=== PATIENT | female | born 1995 | race Caucasian/White ===

== ENCOUNTER → 2024-10-07 | Outpatient (CLI) | payer BC, SELFPAY | END | disposition home or self-care (01) | LOC: LABSPEC 11:49 | PROVIDERS: Referring Provider Obstetrics & Gynecology; Visit Provider Obstetrics & Gynecology | DX: O26.899 Other specified pregnancy related conditions, unspecified trimester (principal); R30.0 Dysuria; Z3A.00 Weeks of gestation of pregnancy not specified | CPT/HCPCS: 87086 ==

== ENCOUNTER → 2024-10-23 | Outpatient (CLI) | payer BC, SELFPAY ==
[2024-10-23 16:36] LABS: Absolute Lymphocyte Count 2.21 X10^3/uL (0.83-4.51); Absolute Neutrophil Count 6.5 X10^3/uL (2.0-7.7); Basophil# 0.03 X10^3/uL; Basophil% 0.3 % (0-1); Eosinophil# 0.03 X10^3/uL; Eosinophils% 0.3 % (0-5); Hematocrit 40.4 % (37-47); Hemoglobin 13.6 g/dL (12.0-15.0); Lymphocyte # 2.21 X10^3/ul (0.83-4.51); Lymphocyte % 23.5 % (19-41); Mean Corp Hgb Conc 33.7 g/dL (32-36); Mean Corpuscular Hgb 31.5 pg (27.0-32.0); Mean Corpuscular Volume 93.5 fL (81-99); Mean Platelet Vol. 9.6 fl (6.2-12.0); Monocyte# 0.63 X10^3/uL; Monocyte% 6.7 % (0-10); NRBC Flagged by Analyzer 0 % (0-5); Platelet Count 322 K/mm3 (150-450); RBC Distribution Width CV 12.3 % (11.6-14.6); RBC Distribution Width SD 42.5 fl (35.1-43.9); Red Blood Count 4.32 M/mm3 (4.2-5.4); White Blood Count 9.4 K/mm3 (4.4-11.0)
[2024-10-23 17:25] LABS: HIV Nonreactive (Nonreactive); Hepatitis B Surface Antigen Nonreactive (Nonreactive); Hepatitis C Antibody Nonreactive (Nonreactive); Rubella IgG REAC (Nonreactive); Syphilis Antibodies Nonreactive (Nonreactive)
[2024-10-26 22:06] LABS: Chlamydia By Nucleic Acid AMP Negative (Negative); Gonococcus By Nucleic Acid AMP Negative (Negative)
== END | disposition home or self-care (01) ==
PROVIDERS: Referring Provider Advanced Practice Midwife; Visit Provider Advanced Practice Midwife
DX: Z34.90 Encounter for supervision of normal pregnancy, unspecified, unspecified trimester (principal)
CPT/HCPCS: 36415; 85025; 86703; 86762; 86780; 86803; 86850; 86900; 86901; 87086; 87340; 87491; 87591

== ENCOUNTER 2025-01-22 02:56 | Emergency (ER) | payer BC, SELFPAY ==
[2025-01-22 02:58] VITALS: BP 101/48; PULSE 60; RESP 18; TEMP 36.6; O2SAT 99; BMI 27.5
--- NOTE | 2025-01-22 03:10 | EX.ED.DYSGE1 ---
HPI History of Present Illness Chief Complaint: Abd Pain Narrative Narrative: Patient is a 29-year-old female G3, P2 who is currently 21 weeks who presents to the emergency department chief complaint of abdominal pain. Patient was transferred via EMS from outside facility. States that tonight while laying in bed she noted that she had acute onset of abdominal pain prompting her to go to the local emergency department in [place] and after workup performed there was sent here. Nahomi jauregui there they talked with [facility] and spoke with Dr. Chacon who accept the patient for transfer. Patient states that she had no other complications with her previous pregnancies outside of having a kidney stone but she states that this does feel slightly different. [facility] Medical History Kidney stones Home Medications ?Medication ?Instructions ?Recorded ?Last Taken ?Type vits no.126-ferrous fum 1 tab PO DAILY 10/07/24 Unknown History 28 mg iron-folic acid 800 mcg tablet (Classic ) ondansetron 4 mg disintegrating 4 mg PO Q6H PRN nausea and 10/23/24 Unknown Rx tablet vomiting #30 tabs Allergy/AdvReac Type Severity Reaction Status Date / Time No Known Allergies Allergy Verified 01/22/25 02:57 Family History Mother Thyroid disorder Grandfather Lung cancer Father Hypertension Grandmother Acute Crohn's disease Surgical History S/P ureteral stent placement Social History adopted: No household members: spouse and children number of children: 2 current occupational status: employed current occupation: [employer] (works from home) current occupational exposures/hazards: No pets and animals: Yes pets and animals: dog(s) history of recent travel: No sexually active: Yes Smoking Status: Former smoker how long ago did patient quit smoking: In high school second hand exposure: No quit status: quit date established alcohol intake: current alcohol intake frequency: holidays/special occasions only substance use type: does not use well-balanced diet: daily or most days caffeine: Yes Type: coffee Number of servings: 1 eating out: 1-3 times/week during the past year weight has: remained stable what type of physical activity do you participate in: walking frequency: daily duration: 30-45 minutes/day susie/church: None seatbelt use: always do you feel safe at home: Yes additional social history: : Frank CONNOR ROS ED ROS Narrative Constitutional: Denies any fevers or chills Cardiovascular: Denies chest pain Respiratory: Denies shortness of breath Abdomen: Complains of abdominal pain as noted above as well as nausea denies diarrhea : Denies any painful urination, hematuria, polyuria, vaginal spotting Neurological: Denies any numbness, weakness, tingling Musculoskeletal: Denies back pain Skin: Denies any rashes or lesions EXAM Physical Exam Narrative Exam Narrative: General: Patient lying in bed rest comfortably did not appear to be in acute distress Head: Atraumatic, normocephalic Eyes: PERRL bilaterally, EOMI bilaterally, no conjunctival injection noted Neck: Soft, supple, trachea midline Cardiovascular: Regular rate and rhythm Respiratory: Clear to auscultation bilaterally Abdomen: Soft, gravid abdomen, tenderness to palpation of the right lower quadrant no rebound or guarding on exam Musculoskeletal: No CVA tenderness on exam Extremities: +5/5 strength noted in the bilateral upper and lower extremities Neurological: Patient following commands knew that she was at [facility] the year is 2024 Skin: Warm, dry, intact no rashes or lesions noted Const Vital Signs: 01/22/25 02:58 Temperature 97.9 F Temperature Source Oral Pulse Rate 60 Respiratory Rate 18 Blood Pressure 101/48 L Blood Pressure Mean 65 Pulse Ox 99 Oxygen Delivery Method Room Air MDM MDM MDM Narrative Medical decision making narrative: Patient is a 29-year-old female who presented to the emergency department with a chief complaint of abdominal pain. On the differential diagnosis includes but not limited to appendicitis, urolithiasis, UTI, pyelonephritis. Once the workup is obtained and reviewed she will be reevaluated. Patient's outside paperwork was reviewed which included a CMP which showed sodium was normal at 137, potassium normal 3.6, creatinine was 0.58. Patient's AST and ALT were 10 and 9 respectively calcium was normal at 9.3. Patient lipase normal at 25. Patient CBC was reviewed which showed a mild leukocytosis of 11,000, hemoglobin 11.8, platelet count of 262. heart tones at outside facility were 150. Patient urinalysis obtained here was reviewed which showed 250 occult blood 25 leukocyte esterase negative nitrites 0-5 white cells and rare bacteria noted this was sent for culture. I called and spoke with on-call [employer] [facility] for [place] Dr. Chacon and we discussed and she is recommending obtaining a CT scan. I went back in and discussed with the patient again about the risks and benefits of this imaging and she states that her and her want talk about this. I did discuss that there are risks if she does have appendicitis that infections can induce early labor and she is 21 weeks currently which is nonviable. Will reevaluate her to see the results of their discussion. Went back in and discussed again with the patient and her significant other at bedside and they ultimately want to hold off on the CT scan at this point in time. They will come back immediately if anything worsens or changes. Once again I reiterated that there is a chance that she does have appendicitis which could lead to this worsening which could lead to early labor in the setting of 21 weeks which is not viable. This also could lead to her self becoming severely ill ultimately to her she verbalized understanding of this as well as her significant other bedside. They are advised to return with worsening symptoms or concerns they are also advised to follow-up on urine culture and follow-up with her [employer] [facility] [facility] team. All question concerns answered she was discharged home in stable condition. Lab Data Labs: Laboratory Results - last 24 hr 01/22/25 03:15 Urine Color Yellow Urine Clarity Clear Urine pH 6.5 Ur Specific [place] 1.010 Urine Protein 15 H Urine Glucose (UA) Normal Urine Ketones 15 H Urine Occult Blood 250 H Urine Nitrite Negative Urine Bilirubin Negative Urine Urobilinogen Normal Ur Leukocyte Esterase 25 H Urine RBC 0-5 SEEN Urine WBC 0-5 SEEN Ur Squamous Epith Cells 0-5 SEEN Ur Transition Epith Cell 0-5 SEEN Urine Bacteria RARE Urine Mucus 1+ Discharge Plan Triage Chief Complaint: Abd Pain ED Provider: Shaji Tao Dx/Rx/DC Orders Clinical Impression: , Abdominal pain Prescriptions: No Action Classic 28 mg iron- 800 mcg tablet 1 tab PO DAILY ondansetron 4 mg tablet,disintegrating 4 mg PO Q6H PRN (Reason: nausea and vomiting) Qty: 30 4RF Primary Care Provider: Faiza Greenberg Referrals: Faiza Greenberg MD [Primary Care Provider] - Activity Restrictions/Additional Instructions: If anything worsens or any other concerns return to the emergency department immediately. Follow-up your [employer] [facility] [facility] in outpatient setting otherwise. Follow-up on urine culture with them as well. Print Language: Maltese Disposition Disposition: Home, Self Care
[2025-01-22 03:20] LABS: Color, Urine Yellow (Yellow); Glucose, Dipstick Normal (Normal); Urine Bilirubin Dipstick Negative (Negative)
[2025-01-22 03:21] LABS: Ketone-Dipstick 15 mg/dl (Negative); Leukocyte Esterase-Dipstick 25 /ul (Negative); Nitrite-Dipstick Negative (Negative); Occult Blood-Urine 250 /ul (Negative); Protein-Dipstick 15 mg/dl (Negative); Specific Gravity, Urine 1.010 (1.002-1.030)
--- OUTSIDE RECORDS SUMMARY | 2025-01-22 03:35 | XMS RPT_ITS | CCD ---
Author Organization [facility] CliniSyoh Care Team Providers Care Operating Room Technologist Name Role Phone Cadiz, Jie S Unavailable Unavailable Unavailable Cadiz DO, Jie S Primary Care Provider [phone] Cadiz DO, Jie S Unavailable [phone] Cadiz DO, Jie S Primary Care Provider Cadiz DO, Jie S Unavailable [phone] MIMI DE ANDA Attending Unavailable ROYAL, JIE S Referring Unavailable ROYAL, JIE S Primary Care Unavailable ROYAL, JIE S Attending Unavailable ROYAL, JIE S Referring Unavailable ROYAL, JIE S Primary Care Unavailable Dr. Liz Ca DO Attending Provider Dr. Liz Ca DO Referring Provider Heather Lee RN Attending Provider UnavailMissy Fleming CNM Attending Provider Missy Fuentes CNM Referring Provider Haley ALMANZA, Dr. Ziegler Attending Provider Abimael MAGDALENOCRadha Attending Provider [phone] KATERINA PRIMARY CAREMD Primary Care Unavailable DARRELL PA Attending Unavailable Karlie De Leon Attending Unavailable Heather Lee Attending Unavailable Missy Fuentes Attending Unavailable Liz Ca Attending UnavailRadha Perez NP Attending Unavailable Liz Ca Referring UnavailLiz Mittal Attending UnavailMissy Fleming Referring Unavailable Missy Fuentes Attending Unavailable Radha Varghese NP Attending Unavailable Cadiz DO, Jie S Primary Care Provider Medications Current Medications Medication Drug Class(es) Dates Sig (Normalized) Sig (Original) Vit No.913-Vqtk-Coqnz (Classic ) 28 mg iron- 800 mcg tablet (4 sources) Start: 10-07-2024 Vit No.354-Wirz-Plach (Classic ) 28 mg iron- 800 mcg tablet Active {tbl} PO October 07, 2024 12:00am Completed/Discontinued Medications Medication Drug Class(es) Dates Sig (Normalized) Sig (Original) 1 ml fentaNYL 0.05 mg/ml injection (1 source) Opioid Agonist Start: 01-22-2025 End: 01-22-2025 50 mcg, intravenous, Once, On Sat01/22/25 at 0015, For 1 dose 1 ml morphine sulfate 2 mg/ml prefilled syringe (1 source) Opioid Agonist Start: 01-21-2025 End: 01-21-2025 2 mg, intravenous, Once, On Sat01/21/25 at 2325, For 1 dose nitrofurantoin, macrocrystals 25 mg / nitrofurantoin, monohydrate 75 mg oral capsule (4 sources) Nitrofuran Antibacterial Start: 10-07-2024 End: 10-14-2024 take 1 capsule by mouth twice daily at mealtime Nitrofurantoin Monohyd/M-Cryst (Macrobid) 100 mg capsule Discontinued 100 mg PO TWICE A DAY 14 7 0 October 07, 2024 12:00am October 13, 2024 12:00am October 14, 2024 12:08am must administer with a meal/food No Reported Medications (2 sources) No Reported Medications Quantity: 0 Refills: 0 Ordered: 29-Mar-2022 DO Active 2 ml ondansetron 2 mg/ml injection (6 sources) Serotonin-3 Receptor Antagonist Start: 01-21-2025 End: 01-22-2025 4 mg, intravenous, Once, On Sat01/22/25 at 0020, For 1 dose, When administering via IV Push, administer over 3-5 minutes. Start: 10-23-2024 take 1 tablet by hugo th every six hours as needed for nausea and vomiting Ondansetron 4 mg tablet,disintegrating Active 4 mg PO EVERY 6 HOURS as needed for nausea and vomiting 30 4 October 23, 2024 12:00am Nausea and vomiting during Vomiting of , unspecified promethazine (Phenergan) 12. 5 mg in sodium chloride 0.9% 50 mL IV (2 sources) Start: 01-22-2025 End: 01-22-2025 12.5 mg, intravenous, Administer over 15 Minutes, Once, On Sat01/22/25 at 0130, For 1 dose Start: 01-22-2025 End: 01-22-2025 12.5 mg, intravenous, Admini ster over 15 Minutes, Once, On Sat01/22/25 at 0055, For 1 dose 1000 ml sodium chloride 9 mg /ml injection (4 sources) Start: 01-22-2025 End: 01-22-2025 Starting on Sat01/22/25 at 00 59, For 1 dose, Created by cabinet override Start: 01-21-2025 End: 01-23-2025 500 mL, intravenous, at 500 mL/hr, Administer over 1 Hours, Once, On Sat01/22/25 at 0130, For 1 dose Problems Active Problems Problem Classification Problem Date Documented Da te Episodic/Chronic Abdominal pain (1 source) Right lower quadrant pain; Translations: [Right lower quadrant pain] 01-22-2025 Episodic Calculus of urinary tract (2 sources) Kidney stone; Translations: [Calculus of kidney] Episodic Hemorrhage during ; abruptio placenta; placenta previa (2 sources) Low lying placenta; Translations: [Low lying placenta NOS or without hemorrhage, unspecified trimester] 01-13-2025 Episodic Comment on above: pelvic rest, 28 week follow up scan:03/08 MFM: Other and unspecified benign neoplasm (2 sources) Melanocytic nevus; Translations: [Benign neoplasm of skin, site unspecified] Episodic Other complications of (1 source) Vomiting of , unspecified; Translations: [Vomiting of , unspecified] Onset: 10-23-2024 Episodic Other complications of (1 source) Other specified related conditions, unspecified trimester; Translations: [Other specified related conditions, unspecified trimester] Onset: 11-06-2024 Episodic Other nervous system disorders (2 sources) Choroid plexus cyst; 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 Declines genetic/car rier testing, AFP, Residual codes; unclassified (1 source) 12 weeks gestation of ; Translations: [12 weeks gestation of ] Onset: 11-19-2024 Episodic Residual codes; unclassified (1 source) 8 weeks gestation of ; Translations: [8 weeks gestation of ] Onset: 10-23-2024 Episodic Past or Other Problems Problem Classification Problem Date Documented Da te Episodic/Chronic Genitourinary symptoms and ill-defined conditions (1 source) Dysuria; Translations: [Dysuria] Onset: 10-07-2024 Episodic Other and unspecified benign neoplasm (5 sources) Multiple atypical melanocytic nevi; Translations: [Melanocytic nevi, unspecified] Onset: 10-03-2023 10-03-2023 Episodic Other screening for suspected conditions (not mental disorders or infectious disease) (6 sources) Patient encounter status; Translations: [Encounter for screening for lipoid disorders] Onset: 10-03-2023 10-03-2023 Episodic Unclassified (4 sources) Onset: 10-03-2023 Resolved: 10-08-2024 10-03-2023 Results Test Name Value Interpretation Reference Range Facility CBC W Auto Differential pane l (Bld)on 01-21-2025 Basophils (Bld) [#/Vol] 0.03 10*3/uL [facility] Basophils/100 WBC (Bld) 0.3 % 0.0 - 2.0 % [facility] Eosinophils (Bld) [#/Vol] 0.06 10*3/uL [facility] Eosinophils/100 WBC (Bld) 0.5 % 0.0 - 6.0 % [facility] Erythrocyte distribution width (RBC) [Ratio] 12.3 % 11.5 - 14.5 % [facility] Hematocrit (Bld) [Volume fraction] 33.4 % Low 36.0 - 46.0 % [facility] Hemoglobin (Bld) [Mass/Vol] 11.8 g/dL Low 12.0 - 16.0 g/dL [facility] Immature granulocytes (Bld) [#/Vol] 0.07 10*3/uL [facility] Immature granulocytes/100 WBC (Bld) 0.6 % 0.0 - 0.9 % [facility] Comment on above: Immature Granulocyte Count (IG) includes promyelocytes, myelocytes and metamyelocytes but does not include bands. Percent differential counts (%) should be interpreted in the context of the absolute cell counts (cells/UL). Interpretation and review of laboratory results Abnormal [facility] Lymphocytes (Bld) [#/Vol] 3.56 10*3/uL [facility] Lymphocytes/100 WBC (Bld) 30.3 % 13.0 - 44.0 % [facility] MCH (RBC) [Entitic mass] 32.3 pg 26.0 - 34.0 pg [facility] MCHC (RBC) [Mass/Vol] 35.3 g/dL 32.0 - 36.0 g/dL [facility] MCV (RBC) [Entitic vol] 92 fL 80 - 100 fL [facility] Monocytes (Bld) [#/Vol] 0.79 10*3/uL [facility] Monocytes/100 WBC (Bld) 6.7 % 2.0 - 10.0 % [facility] Neutrophils (Bld) [#/Vol] 7.23 10*3/uL [facility] Comment on above: Percent differential counts (%) should be interpreted in the context of the absolute cell counts (cells/uL). Neutrophils/100 WBC (Bld) 61.6 % 40.0 - 80.0 % [facility] Nucleated RBC/100 WBC (Bld) [Ratio] 0.0 % [facility] Platelets (Bld) [#/Vol] 262 10*3/uL [facility] RBC (Bld) [#/Vol] 3.65 10*6/uL Low [facility] WBC (Bld) [#/Vol] 11.7 10*3/uL High [facility]ive [facility] Comprehensive metabolic 2000 panelon 01-21-2025 Albumin BCP dye [Mass/Vol] 4.0 g/dL 3.4 - 5.0 g/dL [facility] ALP [Catalytic activity/Vol] 48 U/L 33 - 110 U/L [facility] ALT With P-5'-P [Catalytic activity/Vol] 9 U/L 7 - 45 U/L [facility] Comment on above: Patients treated wit h Sulfasalazine may generate falsely decreased results for ALT. Anion gap [Moles/Vol] 14 mmol/L 10 - 20 mmol/L [facility] AST With P-5'-P [Catalytic activity/Vol] 10 U/L 9 - 39 U/L [facility] Bilirubin [Mass/Vol] 0.2 mg/dL 0.0 - 1 .2 mg/dL [facility] Calcium [Mass/Vol] 9.3 mg/dL 8.6 - 10. 3 mg/dL [facility] Chloride [Moles/Vol] 106 mmol/L 98 - 10 7 mmol/L [facility] CO2 [Moles/Vol] 21 mmol/L 21 - 32 mmol/L [facility] Creatinine [Mass/Vol] 0.58 mg/dL 0.50 - 1.05 mg/dL [facility] eGFR - PINF [facility] Comment on above: Calculations of mariia mated GFR are performed using the 2020 CKD-EPI Study Refit equation without the race variable for the IDMS-Traceable creatinine methods. https://jasn.asnjournals.org/content//ASN.696 7398395 Glucose [Mass/Vol] 93 mg/dL 74 - 99 mg/dL Uni [facility] Interpretation and review of laboratory results Normal [facility] Potassium [Moles/Vol] 3.6 mmol/L 3.5 - 5.3 mmol/L [facility] Protein [Mass/Vol] 6.8 g/dL 6.4 - 8.2 g/dL Un [facility] Sodium [Moles/Vol] 137 mmol/L 136 - 145 mmol/L [facility] Urea nitrogen [Mass/Vol] 14 mg/dL 6 - 23 mg/d L [facility] Lactateon 01-21-2025 Lactate [Moles/Vol] 1.4 mmol/L 0.4 - 2. 0 mmol/L [facility] Lactate [Moles/Vol]on 2024 Interpretation and review of laboratory results Normal [facility] Venipuncture immediately after or during the administration of Metamizole may lead to falsely low results. Testing should be performed immediately prior to Metamizole dosing. [facility] Lipaseon 01-21-2025 Lipase [Catalytic activity/Vol] 25 U/L 9 - 82 U/L [facility] Lipase [Catalytic activity/V ol]on 01-21-2025 Interpretation and review of laboratory results Normal [facility] Venipuncture immediately after or during the administration of Metamizole may lead to falsely low results. Testing should be performed immediately prior to Metamizole dosing. [facility] Delivery Route Driver Office Visit Reporton 01-13-2025 Delivery Route Driver Office Visit Report [facility] [address], [address] [place] [address] OFFICE VISIT Date of Service: 01/13/25 MR#: [id number] Acct: [id number] Name: PRIYANKA CHAVIRA Rep #: [id number] : 1995 Provider: DARYN kim Age/Sex: 29/F Location: [facility] [place] Status: Signed Intake Vital Signs 11/19/24 15:17 12/16/24 08:48 01/13/25 09:48 01/13/25 09:57 Height 5 ft 2 in 5 ft 2 in 5 ft 2 in 5 ft 2 in Weight: 145 lb 2 oz BMI 26.5 BP 108/66 Intake Visit Reasons: 20 WK OB Chief Complaint: 20 Week OB Sandwich And Drink Cart Operator Required: No Is patient in pain?: No Allergies No Known Allergies Allergy (Verified 01/13/25 09:47) Medications ???Medication ???Instructions ???Recorded ???Confirmed ???Type vits no.126-ferrous fum tab PO 10/07/24 01/13/25 History 28 mg iron-folic acid 800 mcg tablet (Classic ) ondansetron 4 mg disintegrating 4 mg PO Q6H PRN nausea and 5 01/13/25 Rx tablet vomiting #30 tabs Last Menstrual Period: 08/23/24 Zika: Zika virus screening: Negative : No PFSH PFSH Medical History Kidney stones Surgical History S/P ureteral stent placement Family History Mother Thyroid disorder Grandfather Lung cancer Father Hypertension Grandmother Acute Crohn's disease Social History adopted: No household members: spouse and children number of children: 2 current occupational status: employed current occupation: [employer] (works from home) current occupational exposures/hazards: No pets and animals: Yes pets and animals: dog(s) history of recent travel: No sexually active: Yes Smoking Status: Former smoker how long ago did patient quit smoking: In high school second hand exposure: No quit status: quit date established alcohol intake: current alcohol intake frequency: holidays/special occasions only substance use type: does not use well-balanced diet: daily or most days caffeine: Yes Type: coffee Number of servings: 1 eating out: 1-3 times/week during the past year weight has: remained stable what type of physical activity do you participate in: walking frequency: daily duration: 30-45 minutes/day susie/rastafarian: None seatbelt use: always do you feel safe at home: Yes additional social history: : Frank Rios History 3 Elective abortions Hx Para 2 Spontaneous abortions 0 Hx # Term Pregnancies 2 Ectopic pregnancies Hx # Pregnancies Multiple births # of living children 2 Past Pregnancies Del. Date Name GA/Weeks Outcome Route Bth Weight Gen Labor Lgth Anesthesia Del Locatn Provider FOB 01/28/14 Emmy 40 live - full term 6lbs 6oz Female epidural [facility] [place] 09/25/21 Ninoska 39 live - full term 7lbs 1.5oz Female epidural [facility] Delivery Date: 01/28/14 Last Updated by: Heather Lee RN No complications Delivery Date: 09/25/21 Last Updated by: Heather Lee RN Very sick, Kidney stone - hospitalized stent placed HPI 20 WK OB Details: PRIYANKA CHAVIRA is a 29 year old who presents for routine OB visit. OB Visit LAVELLE Calculator Estimated Delivery Date Method Current WG Current Estimate 05/30/25 LMP (Certain) 20w 3d Other Estimates 05/29/25 Ultrasound #1 20w 4d Expected Delivery Route/Plan Labor Preferences- CB/BF classes: [] labor support person: [] labor intervention preferences: [] pain management options preferred: [] cut cord/dad catch: [] : [] PP control planned: [] discussed possible routes of delivery and associated risks: [] special requests: [] Specific Issue/Plans Covid status: [] Flu vaccine: [] Tdap vaccine: [] Rhogam: [] LARC form signed: [] Problem list reviewed and updated with the most current plan of care details and appropriate orders placed. Relevant counseling for the gestational age provided. Continue routine care and follow up unless otherwise noted in visit notes/problem list details Initial Weight: 142 lb Date -???-???-???-???-?? ?-???-???-???-???-? ??-???-???- EGA Weight BP Urine Prot -???-???-???-???-?? ?-???-???-???-???-? ??-???-???- Glucose FHR FuHt Pres Dilation -???-???-???-???-?? ?-???-???-???-???-? ??-???-???- Effaced St Visit Note 10/23/24 -???-???-???-???-?? ?-???-???-???-???-? ??-???-???- 8w 5d 142 lb 8 oz (+8 oz) 121/66 -???-???-???-???-?? ?-???-???-???-???-? ??-???-???- 170 -???-???-???-???-?? ?-???-???-???-???-? ??-???-???- KW- CRL cons with (more content not included)... Normal [facility] Delivery Route Driver Office Visit Reporton 12-16-2024 Delivery Route Driver Office Visit Report [facility] [address], [address] [place] [address] OFFICE VISIT Date of Service: 12/16/24 MR#: [id number] Acct: [id number] Name: PRIYANKA CHAVIRA Rep #: [id number] : 1995 Provider: DARYN kim Age/Sex: 29/F Location: [facility] [place] Status: Signed Intake Vital Signs 10/23/24 13:06 11/19/24 15:17 12/16/24 08:37 12/16/24 08:48 Height 5 ft 2 in 5 ft 2 in 5 ft 2 in 5 ft 2 in Weight: 142 lb 8 oz 138 lb 8 oz 142 lb BMI 26.0 25.3 25.9 BP 121/66 H 106/67 104/60 Intake Visit Reasons: 16 wk ob Chief Complaint: 16 Week OB Sandwich And Drink Cart Operator Required: No Is patient in pain?: No Allergies No Known Allergies Allergy (Verified 12/16/24 08:37) Medications ???Medication ???Instructions ???Recorded ???Confirmed ???Type vits no.126-ferrous fum tab PO 10/07/24 12/16/24 History 28 mg iron-folic acid 800 mcg tablet (Classic ) ondansetron 4 mg disintegrating 4 mg PO Q6H PRN nausea and 5 12/16/24 Rx tablet vomiting #30 tabs Last Menstrual Period: 08/23/24 Zika: Zika virus screening: Negative : No PFSH PFSH Medical History Kidney stones Surgical History S/P ureteral stent placement Family History Mother Thyroid disorder Grandfather Lung cancer Father Hypertension Grandmother Acute Crohn's disease Social History adopted: No household members: spouse and children number of children: 2 current occupational status: employed current occupation: [employer] (works from home) current occupational exposures/hazards: No pets and animals: Yes pets and animals: dog(s) history of recent travel: No sexually active: Yes Smoking Status: Former smoker how long ago did patient quit smoking: In high school second hand exposure: No quit status: quit date established alcohol intake: current alcohol intake frequency: holidays/special occasions only substance use type: does not use well-balanced diet: daily or most days caffeine: Yes Type: coffee Number of servings: 1 eating out: 1-3 times/week during the past year weight has: remained stable what type of physical activity do you participate in: walking frequency: daily duration: 30-45 minutes/day susie/rastafarian: None seatbelt use: always do you feel safe at home: Yes additional social history: : Frank - [employer] History 3 Elective abortions Hx Para 2 Spontaneous abortions 0 Hx # Term Pregnancies 2 Ectopic pregnancies Hx # Pregnancies Multiple births # of living children 2 Past Pregnancies Del. Date Name GA/Weeks Outcome Route Bth Weight Gen Labor Lgth Anesthesia Del Locatn Provider FOB 01/28/14 Emmy 40 live - full term 6lbs 6oz Female epidural [facility] 09/25/21 Ninoska 39 live - full term 7lbs 1.5oz Female epidural [facility] Delivery Date: 01/28/14 Last Updated by: Heather Lee RN No complications Delivery Date: 09/25/21 Last Updated by: Heather Lee RN Very sick, Kidney stone - hospitalized stent placed HPI 16 wk ob Details: PRIYANKA CHAVIRA is a 29 year old who presents for routine OB visit. OB Visit LAVELLE Calculator Estimated Delivery Date Method Current WG Current Estimate 05/30/25 LMP (Certain) 16w 3d Other Estimates 05/29/25 Ultrasound #1 16w 4d Expected Delivery Route/Plan Labor Preferences- CB/BF classes: [] labor support person: [] labor intervention preferences: [] pain management options preferred: [] cut cord/dad catch: [] : [] PP control planned: [] discussed possible routes of delivery and associated risks: [] special requests: [] Specific Issue/Plans Covid status: [] Flu vaccine: [] Tdap vaccine: [] Rhogam: [] LARC form signed: [] Problem list reviewed and updated with the most current plan of care details and appropriate orders placed. Relevant counseling for the gestational age provided. Continue routine care and follow up unless otherwise noted in visit notes/problem list details Initial Weight: 142 lb Date -???-???-???-???-?? ?-???-???-???-???-? ??-???-???- EGA Weight BP Urine Prot -???-???-???-???-?? ?-???-???-???-???-? ??-???-???- Glucose FHR FuHt Pres Dilation -???-???-???-???-?? ?-???-???-???-???-? ??-???-???- Effaced St Visit Note 10/23/24 -???-???-???-???-?? ?-???-???-???-???-? ??-???-???- 8w 5d 142 lb 8 oz (+8 oz) 121/66 -???-???-???-???-?? ?-???-???-???-???-? ??-???-???- 170 -???-???-???-???-?? ?-???-?? (more content not included)... Normal [facility] Laboratory - Chemistry and C hemistry - challengeOrdered By: Karlie De Leon on 11-19-2024 Glucose Ql (U) Negative [facility] - UrinalysisOrder ed By: Karlie De Leon on 11-19-2024 Protein Ql (U) Negative [facility] Delivery Route Driver Office Visit Reporton 11-19-2024 Delivery Route Driver Office Visit Report [facility] [address], [address] [place] [address] OFFICE VISIT Date of Service: 11/19/24 MR#: [id number] Acct: [id number] Name: PRIYANKA CHAVIRA Rep #: [id number] : 1995 Provider: Dr. Karlie martin MD Age/Sex: 29/F Location: [facility] [place] Status: Signed Intake Vital Signs 10/23/24 13:06 11/19/24 15:17 Height 5 ft 2 in 5 ft 2 in Weight: 138 lb 8 oz BMI 25.3 BP 106/67 Intake Visit Reasons: 12wk OB Chief Complaint: 12 Week OB Sandwich And Drink Cart Operator Required: No Is patient in pain?: No Allergies No Known Allergies Allergy (Verified 11/19/24 15:18) Medications ???Medication ???Instructions ???Recorded ???Confirmed ???Type vits no.126-ferrous fum tab PO 10/07/24 11/19/24 History 28 mg iron-folic acid 800 mcg tablet (Classic ) ondansetron 4 mg disintegrating 4 mg PO Q6H PRN nausea and 5 11/19/24 Rx tablet vomiting #30 tabs Last Menstrual Period: 08/23/24 Zika: Zika virus screening: Negative : No PFSH PFSH Medical History Kidney stones Surgical History S/P ureteral stent placement Family History Mother Thyroid disorder Grandfather Lung cancer Father Hypertension Grandmother Acute Crohn's disease Social History adopted: No household members: spouse and children number of children: 2 current occupational status: employed current occupation: [employer] (works from home) current occupational exposures/hazards: No pets and animals: Yes pets and animals: dog(s) history of recent travel: No sexually active: Yes Smoking Status: Former smoker how long ago did patient quit smoking: In high school second hand exposure: No quit status: quit date established alcohol intake: current alcohol intake frequency: holidays/special occasions only substance use type: does not use well-balanced diet: daily or most days caffeine: Yes Type: coffee Number of servings: 1 eating out: 1-3 times/week during the past year weight has: remained stable what type of physical activity do you participate in: walking frequency: daily duration: 30-45 minutes/day susie/rastafarian: None seatbelt use: always do you feel safe at home: Yes additional social history: : [employer] History 3 Elective abortions Hx Para 2 Spontaneous abortions 0 Hx # Term Pregnancies 2 Ectopic pregnancies Hx # Pregnancies Multiple births # of living children 2 Past Pregnancies Del. Date Name GA/Weeks Outcome Route Bth Weight Gen Labor Lgth Anesthesia Del Locatn Provider FOB 01/28/14 Emmy 40 live - full term 6lbs 6oz Female epidural [facility] [place] 09/25/21 Ninoska 39 live - full term 7lbs 1.5oz Female epidural [facility] Delivery Date: 01/28/14 Last Updated by: Heather Lee RN No complications Delivery Date: 09/25/21 Last Updated by: Heather Lee RN Very sick, Kidney stone - hospitalized stent placed HPI 12wk OB Details: PRIYANKA CHAVIRA is a 29 year old who presents for routine OB visit. OB Visit LAVELLE Calculator Estimated Delivery Date Method Current WG Current Estimate 05/30/25 LMP (Certain) 12w 4d Other Estimates 05/29/25 Ultrasound #1 12w 5d Expected Delivery Route/Plan Labor Preferences- CB/BF classes: [] labor support person: [] labor intervention preferences: [] pain management options preferred: [] cut cord/dad catch: [] : [] PP control planned: [] discussed possible routes of delivery and associated risks: [] special requests: [] Specific Issue/Plans Covid status: [] Flu vaccine: [] Tdap vaccine: [] Rhogam: [] LARC form signed: [] Problem list reviewed and updated with the most current plan of care details and appropriate orders placed. Relevant counseling for the gestational age provided. Continue routine care and follow up unless otherwise noted in visit notes/problem list details Initial Weight: 142 lb Date -???-???-???-???-?? ?-???-???-???-???-? ??-???-???- EGA Weight BP Urine Prot -???-???-???-???-?? ?-???-???-???-???-? ??-???-???- Glucose FHR FuHt Pres Dilation -???-???-???-???-?? ?-???-???-???-???-? ??-???-???- Effaced St Visit Note 10/23/24 -???-???-???-???-?? ?-???-???-???-???-? ??-???-???- 8w 5d 142 lb 8 oz (+8 oz) 121/66 -???-???-???-???-?? ?-???-???-???-???-? ??-???-???- 170 -???-???-???-???-?? ?-???-???-???-???-? ??-???-???- KW- CRL cons with dates. denies NIPT. 11/19/24 -???-???-???-? (more content not included)... Normal [facility] Chlamydia/GC SERAFIN aptimaon CHLAMY,NUC ACID Negative Normal Negative [facility] Comment on above: Performed By: #### M 100.2200, L7000.1800 #### [facility] [address] [place], [address] GC BY NUC ACID Negative Normal Negative [facility] Comment on above: Result Comment: Perf ormed at: =G - [facility] [address] [place] [id number] [employer]board Factory Worker: Heather Schreiber MD, Phone: [phone] Performed By: #### M 100.2200, L7000.1800 #### [facility] [address] [place], [address] Urine Cultureon 10-24-2024 URC Culture exhibits no growth. Normal [facility] Comment on above: Performed By: #### M 100.2200, L7000.1800 #### [facility] [address] [place], [address] Absolute lymphocyte countOrd ered By: Missy Fuentes on 10-23-2024 Lymphocytes Auto (Unsp spec) [#/Vol] 2.21 10*3/uL 0.83-4.51 [facility] Absolute neutrophil countOrd ered By: Missy Fuentes on 10-23-2024 Neutrophils (Bld) [#/Vol] 6.5 10*3/uL 2.0-7.7 [facility] Automated lymphocyte count a s percentage of total leukocytesOrdered By: Missy Fuentes on 10-23-2024 Lymphocytes/100 WBC Auto (Unsp spec) 23.5 % 19-41 [facility] Basophil percentageOrdered B y: Missy Fuentes on 10-23-2024 Basophils/100 WBC (Bld) 0.3 % 0-1 [facility] CBC W/Diff, Automatedon Absolute Lymph 2.21 X10 3/uL Normal 0.83-4.51 [facility] Comment on above: Performed By: #### L 3890.6301, L100.0100, BTS, L509.4006, L509.8002, L3890.6006, L3890.6102 #### [facility] [address] [place], [address] Absolute Neut 6.5 X10 3/uL Normal 2.0-7.7 [facility] Comment on above: Performed By: #### L 3890.6301, L100.0100, BTS, L509.4006, L509.8002, L3890.6006, L3890.6102 #### [facility] [address] [place], [address] Basophils/100 WBC (Bld) 0.3 % Normal 0-1 [facility] Comment on above: Performed By: #### L 3890.6301, L100.0100, BTS, L509.4006, L509.8002, L3890.6006, L3890.6102 #### [facility] [address] [place], [address] Eosinophils/100 WBC (Bld) 0.3 % Normal 0-5 [facility] Comment on above: Performed By: #### L 3890.6301, L100.0100, BTS, L509.4006, L509.8002, L3890.6006, L3890.6102 #### [facility] [address] [place], [address] Erythrocyte distribution width (RBC) [Ratio] 12.3 % Normal 11.6-14.6 [facility] Comment on above: Performed By: #### L 3890.6301, L100.0100, BTS, L509.4006, L509.8002, L3890.6006, L3890.6102 #### [facility] [address] [place], [address] Hematocrit (Bld) [Volume fraction] 40.4 % Normal 37-47 [facility] Comment on above: Performed By: #### L 3890.6301, L100.0100, BTS, L509.4006, L509.8002, L3890.6006, L3890.6102 #### [facility] [address] [place], [address] Hemoglobin (Bld) [Mass/Vol] 13.6 g/dL Normal 12.0-15.0 [facility] Comment on above: Performed By: #### L 3890.6301, L100.0100, BTS, L509.4006, L509.8002, L3890.6006, L3890.6102 #### [facility] [address] [place], [address] IG% 0.200 Normal 0.0-0.9 [facility] Comment on above: Result Comment: IG% - Immature Granulocytes (promyelocytes, myelocytes and metamyelocytes) > 1% indicates that a LEFT SHIFT is Present. Performed By: #### L 3890.6301, L100.0100, BTS, L509.4006, L509.8002, L3890.6006, L3890.6102 #### [facility] [address] [place], [address] Lymphocytes/100 WBC (Bld) 23.5 % Normal 19-41 [facility] Comment on above: Performed By: #### L 3890.6301, L100.0100, BTS, L509.4006, L509.8002, L3890.6006, L3890.6102 #### [facility] [address] [place], [address] MCH (RBC) [Entitic mass] 31.5 pg Normal 27.0-32.0 [facility] Comment on above: Performed By: #### L 3890.6301, L100.0100, BTS, L509.4006, L509.8002, L3890.6006, L3890.6102 #### [facility] [address] [place], [address] MCHC (RBC) [Mass/Vol] 33.7 g/dL Normal 32-36 [facility] Comment on above: Performed By: #### L 3890.6301, L100.0100, BTS, L509.4006, L509.8002, L3890.6006, L3890.6102 #### [facility] [address] [place], [address] MCV (RBC) [Entitic vol] 93.5 fL Normal 81-[address] [facility] Comment on above: Performed By: #### L 3890.6301, L100.0100, BTS, L509.4006, L509.8002, L3890.6006, L3890.6102 #### [facility] [address] [place], [address] Monocytes/100 WBC (Bld) 6.7 % Normal 0-[address] [facility] Comment on above: Performed By: #### L 3890.6301, L100.0100, BTS, L509.4006, L509.8002, L3890.6006, L3890.6102 #### [facility] [address] [place], [address] Neutrophils/100 WBC (Bld) 69.0 % Normal 47-70 [facility] Comment on above: Performed By: #### L 3890.6301, L100.0100, BTS, L509.4006, L509.8002, L3890.6006, L3890.6102 #### [facility] [address] [place], [address] Nucleated RBC (Bld) [#/Vol] 0 10*3/uL Normal 0-5 [facility] Comment on above: Performed By: #### L 3890.6301, L100.0100, BTS, L509.4006, L509.8002, L3890.6006, L3890.6102 #### [facility] [address] [place], [address] Platelet mean volume (Bld) [Entitic vol] 9.6 fL Normal 6.2-12.0 [facility] Comment on above: Performed By: #### L 3890.6301, L100.0100, BTS, L509.4006, L509.8002, L3890.6006, L3890.6102 #### [facility] [address] [place], [address] Platelets (Bld) [#/Vol] 322 10*3/uL Normal 150-450 [facility] Comment on above: Performed By: #### L 3890.6301, L100.0100, BTS, L509.4006, L509.8002, L3890.6006, L3890.6102 #### [facility] [address] [place], [address] RBC (Bld) [#/Vol] 4.32 10*6/uL Normal 4.2-5.4 [facility] Comment on above: Performed By: #### L 3890.6301, L100.0100, BTS, L509.4006, L509.8002, L3890.6006, L3890.6102 #### [facility] [address] [place], [address] RDW SD 42.5 fl Normal 35.1-43.9 [facility] Comment on above: Performed By: #### L 3890.6301, L100.0100, BTS, L509.4006, L509.8002, L3890.6006, L3890.6102 #### [facility] [address] [place], [address] WBC (Bld) [#/Vol] 9.4 10*3/uL Normal 4.4-11.0 [facility] Comment on above: Performed By: #### L 3890.6301, L100.0100, BTS, L509.4006, L509.8002, L3890.6006, L3890.6102 #### [facility] [address] [place], [place], [id number] Chlamydia trachomatis rRNA d etection by probe and target amplification methodOrdered By: Missy Fuentes on 10-23-2024 C. trachomatis rRNA SERAFIN+probe Ql (Unsp spec) Negative Negative [facility] Eosinophil percentageOrdered By: Missy Fuentes on 10-23-2024 Eosinophils/100 WBC (Bld) 0.3 % 0-5 [facility] Erythrocyte distribution wid th ratioOrdered By: Missy Fuentes on 10-23-2024 Erythrocyte distribution width (RBC) [Ratio] 12.3 % 11.6-14.6 [facility] Erythrocyte distribution wid th standard deviationOrdered By: Missy Fuentes on 10-23-2024 Erythrocyte distribution width (RBC) [Ratio] 42.5 fl 35.1-43.9 [facility] HIVon 10-23-2024 HIV Non-Reactive Normal Nonreactive [facility] Comment on above: Result Comment: Non- Reactive Reactive Repeatedly reactive samples must be confirmed according to CDC recommended confirmatory algorithms. The subresults for either HIVAG or AHIV can be used as an aid in the selection of the confirmation algorithm for reactive samples. Send out specimens with Reactive results to [facility] for confirmation. Order the HIV antibody detection and differentiation: #[id number] Performed By: #### L 3890.6301, L100.0100, BTS, L509.4006, L509.8002, L3890.6006, L3890.6102 ####[facility] [address] [place], [place], [id number] Hematocrit Auto (Bld) [Volum e fraction]Ordered By: Missy Fuentes on 10-23-2024 Hematocrit (Bld) [Volume fraction] 40.4 % 37-47 [facility] Hemoglobin measurementOrdere d By: Missy Fuentes on 10-23-2024 Hemoglobin (Bld) [Mass/Vol] 13.6 g/dL 12.0-15.0 [facility] Hepatitis C Antibodyon 10-23 Hepatitis C Ab Non-Reactive Normal Nonreactive [facility] Comment on above: Result Comment: Reac tive: Presumptive evidence of antibodies to HCV. Follow CDC recommendations for supplemental testing. Non-Reactive: Antibodies to HCV were not detected; does not exclude the possibility of exposure to HCV Reactive Results are presumptive evidence of antibodies to HCV. Follow CDC recommendations for supplemental testing. Order confirmation testing: HCV Quant by PCR testing - HCVPCR #[id number] Non Reactive: < 0.8 Equivocal: >/= 0.8 to < 1.0 Reactive: >/= 1.0 The [facility] requires that a reactive/equivocal HCV antibody result be sent out for confirmation. HCV Quant by PCR testing. Performed By: #### L 3890.6301, L100.0100, BTS, L509.4006, L509.8002, L3890.6006, L3890.6102 ####[facility] [address] [place], [place], [id number] Immature granulocytes/100 WB C Auto (Bld)Ordered By: Missy Fuentes on 10-23-2024 Immature granulocytes/100 WBC (Bld) 0.200 % 0.0-0.9 [facility] Comment on above: IG% - Immature Granu locytes (promyelocytes, myelocytes and metamyelocytes) > 1% indicates that a LEFT SHIFT is Present. L3890.6102on 10-23-2024 HEP B Surf Ag Non-Reactive Normal Nonreactive [facility] Comment on above: Result Comment: Reac tive: Presumptive evidence of HBV. Repeatedly reactive samples must be confirmed using a neutralization test ([employer] HBsAg Confirmatory Test) Non-Reactive: HBsAg not detected; does not exclude the possibility of exposure to HBV Performed By: #### L 3890.6301, L100.0100, BTS, L509.4006, L509.8002, L3890.6006, L3890.6102 ####[facility] [address] [place], [place], [id number] L509.4006on 10-23-2024 Rubella IgG REAC Normal Nonreactive [facility] Comment on above: Result Comment: Anti body Result: Interpretation Non-Reactive: Non-Immune Reactive: Immune The following results were obtained with the [employer] Rubella IgG assay. Results from assays of other manufacturers cannot be used interchangeably. Performed By: #### L 3890.6301, L100.0100, BTS, L509.4006, L509.8002, L3890.6006, L3890.6102 #### [facility] [address] [place], [address] Laboratory - Microbiology an d Antimicrobial susceptibilityOrdered By: Missy Fuentes on 10-23-2024 HBV surface Ag Ql (S) Non-Reactive Nonreactive [facility] Comment on above: Reactive: Presumptiv e evidence of HBV. Repeatedly reactive samples must be confirmed using a neutralization test ([employer] HBsAg Confirmatory Test)Non-Reactive: HBsAg not detected; does not exclude the possibility of exposure to HBV MCV (mean corpuscular volume ) determinationOrdered By: Missy Fuentes on 10-23-2024 MCV (RBC) [Entitic vol] 93.5 fL 81-99 [facility] Mean corpuscular hemoglobin (MCH) determinationOrdered By: Misys Fuentes on 10-23-2024 MCH (RBC) [Entitic mass] 31.5 pg 27.0-32.0 [facility] Mean corpuscular hemoglobin concentration (MCHC) determinationOrdered By: Missy Fuentes on 10-23-2024 MCHC (RBC) [Mass/Vol] 33.7 g/dL 32-36 [facility] Mean platelet volume determi nationOrdered By: Missy Fuentes on 10-23-2024 Platelet mean volume (Bld) [Entitic vol] 9.6 fL 6.2-12.0 [facility] Monocyte percentageOrdered B y: Missy Fuentes on 10-23-2024 Monocytes/100 WBC (Bld) 6.7 % 0-10 [facility] Neisseria gonorrhoeae nuclei c acid detection by amplified probe techniqueOrdered By: Missy Fuentes on 10-23-2024 N. gonorrhoeae DNA SERAFIN+probe Ql (Unsp spec) Negative Negative [facility] Comment on above: Performed at: =[facility] [employer] [address] [id number] Director: Heather Schreiber MD, Phone: [phone] Neutrophil percentageOrdered By: Missy Fuentes on 10-23-2024 Neutrophils/100 WBC (Bld) 69.0 % 47-70 [facility] No Panel InformationOrdered By: Missy Fuentes on 10-23-2024 HIV (1&2) Antibody Non-Reactive Nonreactive [facility] Comment on above: Non-ReactiveReactive Repeatedly reactive samples must be confirmed according to CDC recommended confirmatory algorithms. The subresults for either HIVAG or AHIV can be used as an aid in the selection of the confirmation algorithm for reactive samples.Send out specimens with Reactive results to [facility] for confirmation.Order the HIV antibody detection and differentiation: #[id number] Nucleated red blood cell per centageOrdered By: Missy Fuentes on 10-23-2024 Nucleated RBC/100 WBC (Bld) [Ratio] 0 % 0-5 [facility] Delivery Route Driver Office Visit Reporton 10-23-2024 Delivery Route Driver Office Visit Report [facility] [address], [address] [place] [address] OFFICE VISIT Date of Service: 10/23/24 MR#: [id number] Acct: [id number] Name: PRIYANKA CHAVIRA Rep #: [id number] : 1995 Provider: GUSTAVO Cruz ams Age/Sex: 29/F Location: [facility] [place] Status: Signed Intake Vital Signs 10/23/24 13:06 Height 5 ft 2 in Weight: 142 lb 8 oz BMI 26.0 BP 121/66 H Intake Visit 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 08/23, [facility]AVELLE 05/30 Chief Complaint: New OB Sandwich [employer] Drink Cart Operator Required: No Is patient in pain?: No Allergies No Known Allergies Allergy (Verified 10/23/24 13:05) Medications ???Medication ???Instructions ???Recorded ???Confirmed ???Type vits no.126-ferrous fum tab PO 10/07/24 10/23/24 History 28 mg iron-folic acid 800 mcg tablet (Classic ) ondansetron 4 mg disintegrating 4 mg PO Q6H PRN nausea and 5 10/23/24 Rx tablet vomiting #30 tabs Last Menstrual Period: 08/23/24 : Yes Have you fallen in the past year?: No PFSH PFSH Medical History Kidney stones Surgical History S/P ureteral stent placement Family History Mother Thyroid disorder Grandfather Lung cancer Father Hypertension Grandmother Acute Crohn's disease Social History adopted: No household members: spouse and children number of children: 2 current occupational status: employed current occupation: [employer] (works from home) current occupational exposures/hazards: No pets and animals: Yes pets and animals: dog(s) history of recent travel: No sexually active: Yes Smoking Status: Former smoker how long ago did patient quit smoking: In high school second hand exposure: No quit status: quit date established alcohol intake: current alcohol intake frequency: holidays/special occasions only substance use type: does not use well-balanced diet: daily or most days caffeine: Yes Type: coffee Number of servings: 1 eating out: 1-3 times/week during the past year weight has: remained stable what type of physical activity do you participate in: walking frequency: daily duration: 30-45 minutes/day susie/rastafarian: None seatbelt use: always do you feel safe at home: Yes additional social history: : [employer] History 3 Elective abortions Hx Para 2 Spontaneous abortions 0 Hx # Term Pregnancies 2 Ectopic pregnancies Hx # Pregnancies Multiple births # of living children 2 Past Pregnancies Del. Date Name GA/Weeks Outcome Route Bth Weight Infant Gen Labor Lgth Anesthesia Del Locatn Provider FOB 01/28/14 Emmy 40 live - full term 6lbs 6oz Female epidural [facility] [place] 09/25/21 Ninoska 39 live - full term 7lbs 1.5oz Female epidural [facility] Delivery Date: 01/28/14 Last Updated by: Heather Lee RN No complications Delivery Date: 09/25/21 Last Updated by: Heather Lee RN Very sick, Kidney stone - hospitalized stent placed HPI SCHOOL PATROL OB LMP 08/23, LAVELLE 05/30 Details: PRIYANKA CHAVIRA is a 29 year old who presents for New OB visit. OB Visit [facility] Calculator Estimated Delivery Date Method Current WG Current Estimate 05/30/25 LMP (Certain) 8w 5d Estimated Due Date: 05/30/25 Expected Delivery Route/Plan Labor Preferences- CB/BF classes: [] labor support person: [] labor intervention preferences: [] pain management options preferred: [] cut cord/dad catch: [] : [] PP control planned: [] discussed possible routes of delivery and associated risks: [] special requests: [] Specific Issue/Plans Covid status: [] Flu vaccine: [] Tdap vaccine: [] Rhogam: [] LARC form signed: [] Problem list reviewed and updated with the most current plan of care details and appropriate orders placed. Relevant counseling for the gestational age provided. Continue routine care and follow up unless otherwise noted in visit notes/problem list details Initial Weight: 142 lb Date -???-???-???-???-?? ?-???-???-???-???-? ??-???-???- EGA Weight BP Urine Prot -???-???-???-???-?? ?-???-???-???-???-? ??-???-???- Glucose FHR FuHt Pres Dilation -???-???-???-???-?? ?-???-???-???-???-? ??-???-???- Effaced St Visit Note 10/23/24 -???-???-???-???-?? ?-???-???-???-???-? ??-???-???- 8w 5d 142 lb 8 oz (+8 oz) 121/66 -???-???-???-???-?? ?-???-???-???-???-? ??-???-???- 170 -???-???-???-???-?? ?-???-???-???-???-? ??-???-???- KW- CRL cons with dates. denies NIPT. Menstrual History Last Menstrual P (more content not included)... Normal [facility] Platelet countOrdered By: Saúl Fuentes on 10-23-2024 Platelets (Bld) [#/Vol] 322 10*3/uL 150-450 [facility] RBC Auto (Bld) [#/Vol]Ordere d By: Missy Fuentes on 10-23-2024 RBC (Bld) [#/Vol] 4.32 10*6/uL 4.2-5.4 [facility] Syphilis Antibodieson 2024 Syphilis Abs Non-Reactive Normal Nonreactive [facility] Comment on above: Performed By: #### L 3890.6301, L100.0100, BTS, L509.4006, L509.8002, L3890.6006, L3890.6102 #### [facility] [address] [place], [place], [id number] Type AND Screenon 10-23-2024 ABO and Rh group Nom (d) Blood group O Rh(D) positive Normal [facility] Comment on above: Order Comment: PN Performed By: #### L 3890.6301, L100.0100, BTS, L509.4006, L509.8002, L3890.6006, L3890.6102 #### [facility] [address] [place], [address] Urine cultureOrdered By: Yobani Fuentes on 10-23-2024 Bacteria identified Cx Nom (U) Culture exhibits no growth. [facility] White blood cell (WBC) count Ordered By: Missy Fuentes on 10-23-2024 WBC (Bld) [#/Vol] 9.4 10*3/uL 4.4-11.0 [facility] Urine Cultureon 10-08-2024 URC Culture exhibits no growth. Normal [facility] Comment on above: Performed By: #### M 100.2200 #### [facility] [address] [place], [address] Laboratory - Chemistry and C hemistry - challengeOrdered By: Liz Fernandes on 10-07-2024 Bilirubin Ql (U) Negative [facility] Glucose Ql (U) Negative [facility] HCG ( test) Ql (U) Positive [facility] Ketones Ql (U) Trace (5) [facility] pH (U) 7.5 [pH] [facility] Specific gravity (U) [Rel density] 1.015 [facility] Urobilinogen (U) [Mass/Vol] Negative [facility] Laboratory - Hematology and Cell countsOrdered By: Liz Fernandes on 10-07-2024 Hemoglobin Ql (U) Trace [facility] Laboratory - Specimen inform ationOrdered By: Liz Fernandes on 10-07-2024 Clarity (U) Clear [facility] Color (U) YELLOW [facility] Laboratory - UrinalysisOrder ed By: Liz Fernandes on 10-07-2024 Nitrite Ql (U) Negative [facility] Protein Ql (U) Negative [facility] No Panel InformationOrdered By: Liz Fernandes on 10-07-2024 Urine Leukocytes Positive [facility] Urine Non-Hemolyzed Blood Non-Hemolyzed [facility] Office Visit Reporton 2024 Office Visit Report [facility] [address] [place] [address] OFFICE VISIT Date of Service: 10/07/24 MR#: [id number] Acct: [id number] Patient: PRIYANKA CHAVIRA Rep #: [id number] : 1995 Provider: Dr. Liz Lackey DO Age/Sex: 29/F Location: [facility] [place] Status: Signed Intake Vital Signs 10/07/24 09:55 Weight: 141 lb 8 oz BP 114/62 Intake Visit Reasons: HCG, verify Chief Complaint: HCG, verify [employer]wich [employer] Drink Cart Operator Required: No Is patient in pain?: No Allergies No Known Allergies Allergy (Verified 10/07/24 09:54) Medications ???Medication ???Instructions ???Recorded ???Confirmed ???Type nitrofurantoin 100 mg PO BID 7 days #14 caps 09/1610/07/24 Rx monohydrate/macrocr ystals 100 mg capsule (Macrobid) vits no.126-ferrous fum tab PO 10/07/24 10/07/24 History 28 mg iron-folic acid 800 mcg tablet (Classic ) Is last menstrual period known: Yes Last menstrual period: 08/23/24 Post menopausal: No Patient : Yes Have you fallen in the past year?: No Results POC Urine Office , Urine Positive Last Edit by Kathryn Mendosa on 10/07/24 09:58 POC Urinalysis Dip (Clinic) Office Urine Color YELLOW Last Edit by Kathryn Mendosa on 10/07/24 09:59 Office Urine Clarity Clear Last Edit by Kathryn Mendosa on 10/07/24 09:59 Office Urine Glucose Negative Last Edit by Kathryn Mendosa on 10/07/24 09:59 Office Urine Ketones Trace (5) Last Edit by Kathryn Mendosa on 10/07/24 09:59 Off Ur Spec [place] 1.015 Last Edit by Kathryn Mendosa on 10/07/24 09:59 Office Urine pH 7.5 Last Edit by Kathryn Mendosa on 10/07/24 09:59 Office Urine Bilirubin Negative Last Edit by Kathryn Mendosa on 10/07/24 09:59 Office Urine Urobilinogen Negative Last Edit by Kathryn Mendosa on 10/07/24 09:59 Office Urine Blood Trace Last Edit by Kathryn Mendosa on 10/07/24 09:59 Office Urine Blood Hemolyzed Non-Hemolyzed Last Edit by Kathryn Mendosa on 10/07/24 09:59 Office Urine Protein Negative Last Edit by Kathryn Mendosa on 10/07/24 09:59 Office Urine Nitrate Negative Last Edit by Kathryn Mendosa on 10/07/24 09:59 Off Ur Leukocytes Positive Last Edit by Kathryn Mendosa on 10/07/24 09:59 Assessment and Plan Assessment and Plan Orders: Orders Culture, Urine 10/07/24 R30.0 - Dysuria, Z34.90 - Encounter for supervision of normal , unspecified, unspecified trimester POC Urine 10/07/24 N91.2 - Amenorrhea, unspecified POC Urinalysis Dip (Clinic) 10/07/24 R30.0 - Dysuria, Z34.90 - Encounter for supervision of normal , unspecified, unspecified trimester Medications: New nitrofurantoin monohyd/m-cryst 100 mg (Macrobid) must administer with a meal/food 100 mg PO BID 14 caps 0RF 7 days Clinical Quality Measures Falls Risk Screening/Assistive Devices Have you fallen in the past year?: No 10/09/24 1605 Date Liz Ca [facility] Signature: Date (if applicable) CC: Normal [facility] Urine cultureOrdered By: Lucy Fernandes on 10-07-2024 Bacteria identified Cx Nom (U) Culture exhibits no growth. [facility] Cervical AND or Vaginal cyto logy studyon 01-06-2024 Cytology Cervical or vaginal smear or scraping study Pathology report.total SEE COMMENT Gynecologic Cytology Case: [id number] Authorizing Provider: Mimi De Anda MD Collected: 01/06/2024 1005 Ordering Location: [facility] Received: 01/06/2024 1005 Office Building First Screen: ELMIRA Wallace Specimen: ThinPrep Liquid-Based Pap-Imaging System Screen, CERVIX, SCREENING Cytology study comment SEE COMMENT A. THINPREP PAP CERVIX, SCREENING - Specimen Adequacy Satisfactory for evaluation; endocervical/transf ormation zone component is present General Categorization Negative for intraepithelial lesion or malignancy. Descriptive Interpretation Negative for intraepithelial lesion or malignancy Specimen does not meet the requisition-stated criteria for HPV testing. See Pap test interpretation above. Laboratory comment SEE COMMENT Slide(s) initially screened by ELMIRA Wallace at [address] [address] By the signature on this report, the individual or group listed as making the Final Interpretation/Diag nosis certifies that they have reviewed this case. This specimen has been analyzed by the ThinPrep Imaging System ([employer] an automated imaging and review system, which assists the laboratory in evaluating cells on ThinPrep Pap tests. Following automated imaging, selected kaur from every slide were reviewed by a analyst geochemical prospecting and/or pathologist. Cervical cytology is a screening procedure primarily for squamous cancers and precursors and has associated false-negative and false-positives results as evidenced by published data. Your patient's test should be interpreted in this context, together with the patient's history and clinical findings. Regular sampling and follow-up of unexplained clinical signs and symptoms are recommended to minimize false negative results. LAB AP HPV HR Reflex if ASCUS only LAB AP HPV GENOTYPE QUESTION Yes Date last menstrual period 12/10/2023 [facility] Tobacco Screening.on 022 Tobacco use status CPHS b) No [facility] Work Phone: Vital Signs Date Time Vital Sign Value Performing Clinician Facility 01-22-2025 01:22-0400 Body temperature 97.5 [degF] Mikael Obregon DO Work Phone: [facility] 01-22-2025 01:22-0400 Diastolic blood pressure 69 mm[Hg] Mikael Obregon DO Work Phone: [facility] 01-22-2025 01:22-0400 Heart rate 58 /min Mikael Obregon DO Work Phone: [facility] 01-22-2025 01:22-0400 Respiratory rate 24 /min Mikael Obregon DO Work Phone: [facility] 01-22-2025 01:22-0400 SaO2% (BldA) [Mass fraction] 99 % Mikael Obregon DO Work Phone: [facility] 01-22-2025 01:22-0400 Systolic blood pressure 117 mm[Hg] Mikael Obregon DO Work Phone: [facility] 01-21-2025 23:15-0400 Body height 157.5 cm Mikael Obregon DO Work Phone: [facility] 01-21-2025 23:15-0400 Body mass index (BMI) [Ratio] 26.52 kg/m2 Mikael Obregon DO Work Phone: [facility] 01-21-2025 23:15-0400 Body weight 65.77 kg Mikael Obregon DO Work Phone: [facility] 01-13-2025 09:57-0400 Body height 157.[address] Liz Ca DO Work Phone: [facility] 01-13-2025 09:48-0400 Body mass index (BMI) [Ratio] 26.5 kg/m2 Dr. Liz Ca DO Work Phone: [facility] 01-13-2025 09:48-0400 Body weight 65.[address] Liz Ca DO Work Phone: [facility] 01-13-2025 09:48-0400 Diastolic blood pressure 66 mm[Hg] Dr. Liz Ca DO Work Phone: [facility] 01-13-2025 09:48-0400 Systolic blood pressure 108 mm[Hg] Dr. Liz Ca DO Work Phone: [facility] 12-16-2024 08:48-0400 Body height 157.[address] Liz Ca DO Work Phone: [facility] 12-16-2024 08:37-0400 Body mass index (BMI) [Ratio] 25.9 kg/m2 Dr. Liz Ca DO Work Phone: [facility] 12-16-2024 08:37-0400 Body weight 64.[address] Liz Ca DO Work Phone: [facility] 12-16-2024 08:37-0400 Diastolic blood pressure 60 mm[Hg] Dr. Liz Ca DO Work Phone: [facility] 12-16-2024 08:37-0400 Systolic blood pressure 104 mm[Hg] Dr. Liz Ca DO Work Phone: [facility] 11-19-2024 15:17-0400 Body height 157.[address] Liz Ca DO Work Phone: [facility] 11-19-2024 15:17-0400 Body mass index (BMI) [Ratio] 25.3 kg/m2 Dr. Liz Ca DO Work Phone: [facility] 11-19-2024 15:17-0400 Body weight 62.[address] Liz Ca DO Work Phone: [facility] 11-19-2024 15:17-0400 Diastolic blood pressure 67 mm[Hg] Dr. Liz Ca DO Work Phone: [facility] 11-19-2024 15:17-0400 Systolic blood pressure 106 mm[Hg] Dr. Liz Ca DO Work Phone: [facility] 10-23-2024 13:06-0400 Body height 157.[address] Liz Ca DO Work Phone: [facility] 10-23-2024 13:06-0400 Body mass index (BMI) [Ratio] 26 kg/m2 Dr. Liz Ca DO Work Phone: [facility] 10-23-2024 13:06-0400 Body weight 64.[address] Liz Ca DO Work Phone: [facility] 10-23-2024 13:06-0400 Diastolic blood pressure 66 mm[Hg] Dr. Liz Ca DO Work Phone: [facility] 10-23-2024 13:06-0400 Systolic blood pressure 121 mm[Hg] Dr. Liz Ca DO Work Phone: [facility] 10-08-2024 08:49-0400 Body height 157.5 cm Jie Cadiz DO Work Phone: [facility] 10-08-2024 08:49-0400 Body mass index (BMI) [Ratio] 26 kg/m2 Jie Cadiz DO Work Phone: [facility] 10-08-2024 08:49-0400 Body weight 64.5 kg Jie Cadiz DO Work Phone: [facility] 10-08-2024 08:49-0400 Diastolic blood pressure 76 mm[Hg] Jie Cadiz DO Work Phone: [facility] 10-08-2024 08:49-0400 Heart rate 91 /min Jie Cadiz DO Work Phone: [facility] 10-08-2024 08:49-0400 SaO2% (BldA) [Mass fraction] 100 % Jie Cadiz DO Work Phone: [facility] 10-08-2024 08:49-0400 Systolic blood pressure 122 mm[Hg] Jie Cadiz DO Work Phone: [facility] 10-07-2024 09:55-0400 Body weight 64.[address] Liz Ca DO Work Phone: [facility] 10-07-2024 09:55-0400 Diastolic blood pressure 62 mm[Hg] Dr. Liz Ca DO Work Phone: [facility] 10-07-2024 09:55-0400 Systolic blood pressure 114 mm[Hg] Dr. Liz Ca DO Work Phone: [facility] 01-06-2024 09:38-0400 Body mass index (BMI) [Ratio] 23.63 kg/m2 Mimi De Anda MD Work Phone: [facility] 01-06-2024 09:38-0400 Body weight 58.6 kg Mimi De Anda MD Work Phone: [facility] 01-06-2024 09:38-0400 Diastolic blood pressure 64 mm[Hg] Mimi De Adna MD Work Phone: [facility] 01-06-2024 09:38-0400 Systolic blood pressure 92 mm[Hg] Mimi De Anda MD Work Phone: [facility] 10-03-2023 16:05-0400 Body height 157.5 cm Jie Cadiz DO Work Phone: [facility] 10-03-2023 16:05-0400 Body mass index (BMI) [Ratio] 22.5 kg/m2 Jie Cadiz DO Work Phone: [facility] 10-03-2023 16:05-0400 Body weight 55.79 kg Jie Cadiz DO Work Phone: [facility] 10-03-2023 16:05-0400 Diastolic blood pressure 78 mm[Hg] Jie Cadiz DO Work Phone: [facility] 10-03-2023 16:05-0400 Heart rate 96 /min Jie Cadiz DO Work Phone: [facility] 10-03-2023 16:05-0400 SaO2% (BldA) [Mass fraction] 98 % Jie Cadiz DO Work Phone: [facility] 10-03-2023 16:05-0400 Systolic blood pressure 106 mm[Hg] Jie Cadiz DO Work Phone: [facility] 03-29-2022 15:00-0400 Body height 157.48 cm Jie S Cadiz Work Phone: [facility] [employer] [facility] Work Phone: 03-29-2022 15:00-0400 Body mass index (BMI) [Ratio] 25.07 kg/m2 Jie S Cadiz Work Phone: [facility] [employer] [facility] Work Phone: 03-29-2022 15:00-0400 Body surface area Derived from formula 1.63 m2 Jie Greenberg [email or web address] Phone: [employer] Work Phone: 03-29-2022 15:00-0400 Body weight 62.17 kg Jie Greenberg [email or web address] Phone: [employer] Work Phone: 03-29-2022 15:00-0400 Diastolic blood pressure 70 mm[Hg] Jie Greenberg [email or web address] Phone: [employer] Phone: 03-29-2022 15:00-0400 Heart rate 54 /min Jie Greenberg [email or web address] Phone: [employer] Phone: 03-29-2022 15:00-0400 SaO2% (BldA) [Mass fraction] 98 % Jie Greenberg [email or web address] Phone: [employer] Phone: 03-29-2022 15:00-0400 Systolic blood pressure 114 mm[Hg] Jie Greenberg [email or web address] Phone: [employer] Phone: Encounters Encounter Date Encounter Type Care Provider Facility Start: 01-21-2025 End: 01-22-2025 Emergency department patient visit Mikael Obregon DO Work Phone: [facility] Comment on above: Right lower quadrant abdominal pain (Primary Dx) Start: 01-13-2025 End: 01-13-2025 Patient encounter procedure Radha STEARNS -[facility] Work Phone: Start: 01-13-2025 End: 01-13-[address] Liz Ca DO Work Phone: -[facility] Start: 01-05-2025 End: 01-05-2025 ambulatory [facility] Start: 12-16-2024 End: 12-16-2024 Patient encounter procedure Radha STEARNS -[facility] Work Phone: Start: 12-16-2024 End: 12-16-[address] Liz Ca DO Work Phone: -[facility] Start: 11-19-2024 End: 11-19-[address] Karlie De Leon MD -[facility] Work Phone: Start: 11-19-2024 End: 11-19-[address] Liz Ca DO Work Phone: [facility] Work Phone: Start: 10-23-2024 End: 10-23-2024 Patient encounter procedure Missy Fuentes CNM -[facility] Work Phone: Start: 10-23-2024 End: 10-23-[address] Liz Ca DO Work Phone: [facility] Work Phone: Start: 10-23-2024 End: 10-23-2024 ambulatory Missy Fuentes Facility:[facility] Start: 10-16-2024 Non-patient / Non-visit Heather brown RN -[facility] Work Phone: Start: 10-16-2024 ambulatory Heather Lee Facility :[facility] Start: 10-08-2024 End: 10-08-2024 ambulatory [facility] Start: 10-08-2024 End: 10-08-2024 Encounter for general adult medical examination without abnormal findings [facility] Start: 10-08-2024 End: 10-08-2024 Patient encounter status [facility] Work Phone: [facility] Work Phone: Start: 10-08-2024 End: 10-08-2024 Periodic preventive med est patient 18-39 yrs Jie Crowe DO Work Phone: [facility] Comment on above: Encounter for wellne ss examination in adult (Primary Dx) Start: 10-07-2024 End: 10-07-[address] Liz Ca DO -Laboratory, Specimen Work Phone: Start: 10-07-2024 End: 10-07-[address] Liz Ca DO -[facility] Work Phone: Start: 10-07-2024 End: 10-07-2024 ambulatory Liz Ca Facility:[facility] Start: 10-07-2024 End: 10-07-2024 ambulatory Liz Ca Facility:[facility] Start: 01-06-2024 End: 01-06-2024 Initial preventive medicine new pt age 18-39yrs Mimi De Anda MD Work Phone: [facility] Comment on above: Encounter for Papani colaou smear for cervical cancer screening (Primary Dx); Healthcare maintenance; Encounter for annual routine gynecological examination Start: 01-06-2024 End: 01-06-2024 Patient encounter procedure Mimi De Anda MD Work Phone: [facility] Work Phone: Start: 01-06-2024 End: 01-06-2024 Patient encounter status Mimi De Anda MD Work Phone: [facility] Work Phone: Start: 01-06-2024 End: 01-06-2024 ambulatory MIMI Coello [facility] Start: 01-06-2024 End: 01-06-2024 Encounter for gynecological examination (general) (routine) without abnormal findings MIMI Coello LYNDA [facility] Start: 10-03-2023 End: 10-03-2023 Patient encounter status Jie Crowe [facility] Work Phone: [facility] Work Phone: Start: 10-03-2023 End: 10-03-2023 Periodic preventive med est patient 18-39 yrs Jie Greenberg [employer] Work Phone: [facility] Comment on above: Multiple atypical sk in moles (Primary Dx); Healthcare maintenance; Encounter for wellness examination in adult; Lipid screening Start: 03-29-2022 Office outpatient ne w 30 minutes Jie Greenberg Work Phone: [facility] Work Phone: Patient encounter status Nevin Crowe [employer] Phone: [facility] Work Phone: Procedures Date Procedure Procedure Detail Performing Clinician Start: 01-21-2025 Comprehensive metabo lic panel Mikael Obregon [employer] Work Phone: Start: 10-23-[address] Karely Ca DO Work Phone: Start: 10-23-2024 Hepatitis C antibody measurement Dr. Liz Ca DO Work Phone: Comment on above: Reactive: Presumptiv e evidence of antibodies to HCV. Follow CDC recommendations for supplemental testing.Non-Reactive: Antibodies to HCV were not detected; does not exclude the possibility of exposure to HCVReactive Results are presumptive evidence of antibodies to HCV. Follow CDC recommendations for supplemental testing.Order confirmation testing: HCV Quant by PCR testing - HCVPCR #[id number] Non Reactive: < 0.8 Equivocal: >/= 0.8 to < 1.0 Reactive: >/= 1.0The CDC requires that a reactive/equivocal HCV antibody result be sent out for confirmation. HCV Quant by PCR testing. Start: 10-23-[address] Liz Ca DO Work Phone: Comment on above: Antibody Result: Int erpretationNon-Reactive: Non- ImmuneReactive: ImmuneThe following results were obtained with the [employer] Rubella IgG assay. Results from assays of other manufacturers cannot be used interchangeably. Start: 10-23-2024 Serologic test for syphilis Dr. Liz Ca DO Work Phone: Start: 10-07-[address] Karely Ca DO Work Phone: Start: 01-06-2024 Microscopic observat ion [Identifier] in Cervix by Cyto stain Jie Greenberg DO Work Phone: No history of surgery Caridad Crowe [employer] Work Phone: Plan of Treatment Date Care Activity Detail Author Start: 2053 RSV patient s and/or patients aged 60+ years (1 - 1-dose 60+ series) RSV patients and/or patients aged 60+ years (1 - 1-dose 60+ series) [facility] Start: 2043 Zoster Vaccines (1 o f 2) Zoster Vaccines (1 of 2) [facility] Start: 07-19-2031 DTaP/Tdap/Td Vaccine s (2 - Td or Tdap) DTaP/Tdap/Td Vaccines (2 - Td or Tdap) [facility] Start: 01-05-2027 Screening for malignant neoplasm of cervix [facility] Start: 10-09-2025 Yearly Adult Physical Yearly Adult P [facility] Start: 04-04-2025 RSV High Risk: (Elderly (60+) or Population) (1 - Risk 1-dose series) RSV High Risk: (Elderly (60+) or Population) (1 - Risk 1-dose series) [facility] Start: 02-15-2025 Influenza vaccination [facility] Start: 01-06-2025 Yearly Adult Physical Yearly Adult P [facility] Start: 10-03-2024 Yearly Adult Physical Yearly Adult P [facility] Start: 10-01-2024 End: 10-01-2024 Patient encounter procedure [facility] Start: 02-16-2024 COVID-19 Vaccine ( season) COVID-19 Vaccine ( season) [facility] Start: 02-16-2024 Influenza vaccination [facility] Start: 10-29-2023 End: 10-29-2023 Patient encounter procedure 10/29/2023 3:00 PM EDT Office Visit [facility] [address] [place] [address] Mimi De Anda MD [address] [facility], [address] [place], [place] [id number] [facility] Start: 10-03-2023 End: 10-02-2024 Lipid 1996 panel - Serum or Plasma Lipid panel Lab Routine Lipid screening Expected: 10/03/2023 (Approximate), Expires: 10/02/2024 [facility] Service Area Work Phone: Comment on above: Expected: 10/03/2023 (Approximate), Expires: 10/02/2024 Start: 02-15-2023 COVID-19 Vaccine ( season) COVID-19 Vaccine ( season) [facility] Start: 01-30-2020 HPV Vaccines (1 - 3-dose standard series) HPV Vaccines (1 - 3-dose standard series) [facility] Start: 2015 DTaP/Tdap/Td Vaccine s (1 - Tdap) DTaP/Tdap/Td Vaccines (1 - Tdap) [facility] Start: 2014 Screening for malignant neoplasm of cervix [facility] Start: 01-30-2012 Hepatitis B Vaccines (1 of 3 - 19+ 3-dose series) Hepatitis B Vaccines (1 of 3 - 19+ 3-dose series) [facility] Start: 2011 Hepatitis C screening Hepatitis C Sc reening [facility] Start: 2006 Varicella vaccination Varicell a Vaccines (1 of 2 - 13+ 2-dose series) [facility] Start: 1994 MMR Vaccines (1 of 1 - Standard series) MMR Vaccines (1 of 1 - Standard series) [facility] Start: 1993 HIV screening HIV Screening [facility] Start: 1993 Lipid panel Lipid Panel [facility] Cytology Cervical or vaginal smear or scraping study THINPREP PAP TEST Pathology and Cytology Routine Encounter for Papanicolaou smear for cervical cancer screening Encounter for annual routine gynecological examination Ordered: 01/06/2024 [facility] Service Area Work Phone: Comment on above: Ordered: 01/06/2024 End: 01-21-2025 Extra Urine Garcia Tube Extra Urine Garcia Tube Lab Timed Once for 1 Occurrences starting 01/21/2025 until 01/21/2025 [facility] Work Phone: Comment on above: Once for 1 Occurrenc es starting 01/21/2025 until 01/21/2025 End: 01-21-2025 Urinalysis complete W Reflex Culture panel - Urine [facility] Work Phone: Comment on above: Once (Lab) for 1 Occ urrences starting 01/21/2025 until 01/21/2025 Once for 1 Occurrenc es starting 01/21/2025 until 01/21/2025 [facility] Payers Date Payer Category Payer Self-pay 2021 [employer]aged [employer] [facility] [id number] 2021 Unknown 2021 Unknown [id number] 1993 Unknown [id number] [id number] 1993 Unknown [id number] 1993 Unknown [id number] [id number] [id number] Unknown [id number] Unknown [id number] Unknown [id number] [id number] Unknown [id number] [id number] Unknown [id number] [id number] Unknown [id number] [id number] Unknown [id number] Unknown [id number] [id number] Social History Date Type Detail Facility Start: 10-03-2023 End: 10-08-2024 Does not use tobacco Does not use tobacco -[facility] Work Phone: Start: 10-03-2023 Tobacco smoking stat [facility] Never smoked tobacco [facility] Work Phone: Start: 10-03-2023 Tobacco use and exposure Smokeless tobacco non-user [facility] Work Phone: Start: 10-03-2023 End: 01-06-2024 Alcoholic beverage intake Lifetime non-drinker (finding) [facility] Work Phone: Start: 10-03-2023 End: 10-08-2024 Tobacco use panel [facility] Work Phone: Start: 1995 Sex assigned at Not on file [facility] Work Phone: Start: 09-23-2023 End: 10-08-2024 Exposure to SARS-CoV-2 (event) Not sure [facility] Start: 10-08-2024 End: 01-21-2025 Alcoholic beverage intake Ex-drinker (finding) [facility] Work Phone: Start: 10-16-2024 Tobacco smoking stat us NHIS Ex-smoker (finding) [facility] Start: 1995 Sex Assigned At Female [facility] Start: 09-06-2024 [facility] Work Phone: Start: 05-12-2022 Sex Female [facility] Functional Status Date Assessment Result Facility 01-21-2025 [facility] suicide s everity rating scale screener - recent [C-SSRS] [facility] Work Phone: 10-08-2024 Patient Health Quest ionnaire 2 item (PHQ-2) [Reported] [facility] Work Phone: Clinical Notes 10-03-2023 to 11-19-2024 Note Date & Type Note Facility 11-19-[address] [facility] [place] [facility] 11-19-2024 Progress note Note Date/Time November 19, 2024 3:41pm [facility] [address], [address] [place] [address] OFFICE VISIT Date of Service: 11/19/24 MR#: [id number] Acct: [id number] Name: PRIYANKA CHAVIRA Rep #: [id number] : 1995 Provider: Dr. 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 Is patient in pain?: No Allergies No Known Allergies Allergy (Verified 11/19/24 15:18) Medications ?Medication ?Instructions ?Recorded ?Confirmed ?Type vits no.126-ferrous fum tab PO 10/07/2411/19 History 28 mg iron-folic acid 800 mcg tablet (Classic ) ondansetron 4 mg disintegrating 4 mg PO Q6H PRN nausea and 10/23/24 11/19/24 Rx tablet vomiting #30 tabs Last Menstrual Period: 08/23/24 Zika: Zika virus screening: Negative : No PFSH PFSH Medical History Kidney stones Surgical History S/P ureteral stent placement Family History Mother Thyroid disorder Grandfather Lung cancer Father Hypertension Grandmother Acute Crohn's disease Social History adopted: No household members: spouse and children number of children: 2 current occupational status: employed current occupation: [employer] (works from home) current occupational exposures/hazards: No pets and animals: Yes pets and animals: dog(s) history of recent travel: No sexually active: Yes Smoking Status: Former smoker how long ago did patient quit smoking: In high school second hand exposure: No quit status: quit date established alcohol intake: current alcohol intake frequency: holidays/special occasions only substance use type: does not use well-balanced diet: daily or most days caffeine: Yes Type: coffee Number of servings: 1 eating out: 1-3 times/week during the past year weight has: remained stable what type of physical activity do you participate in: walking frequency: daily duration: 30-45 minutes/day susie/rastafarian: None seatbelt use: always do you feel safe at home: Yes additional social history: : [employer] History 3 Elective abortions Hx Para 2 Spontaneous abortions 0 Hx # Term Pregnancies 2 Ectopic pregnancies Hx # Pregnancies Multiple births # of living children 2 Past Pregnancies Del. Date Name GA/Weeks Outcome Route Bth Weight Infant Gen Labor Lgth Anes thesi a Del Locatn Provider FOB 01/28/14 Emmy 40 live - full term 6lbs 6oz Female epidural [facility] 09/25/21 Ninoska 39 live - full term 7lbs 1.5oz Female epidural [facility] Delivery Date: 01/28/14 Last Updated by: Heather Lee RN No complications Delivery Date: 09/25/21 Last Updated by: Heather Lee RN Very sick, Kidney stone - hospitalized & stent placed HPI 12wk OB Details: PRIYANKA CHAVIRA is a 29 year old who presents for routine OB visit. OB Visit LAVELLE Calculator Estimated Delivery Date Method Current WG Current Estimate 05/30/25 LMP (Certain) 12w 4d Other Estimates 05/29/25 Ultrasound #1 12w 5d Expected Delivery Route/Plan Labor Preferences- CB/BF classes: [] labor support person: [] labor intervention preferences: [] pain management options preferred: [] cut cord/dad catch: [] : [] PP control planned: [] discussed possible routes of delivery and associated risks: [] special requests: [] Specific Issue/Plans Covid status: [] Flu vaccine: [] Tdap vaccine: [] Rhogam: [] LARC form signed: [] Problem list reviewed and updated with the most current plan of care details and appropriate orders placed. Relevant counseling for the gestational age provided. Continue routine care and follow up unless otherwise noted in visit notes/problem list details Initial Weight: 142 lb Date -?-?-?-?-?-?-?-?-?-?-?-?- EGA Weight BP Urine Prot -?-?-?-?-?-?-?-?-?-?-?-?- Glucose FHR FuHt Pres Dilation -?-?-?-?-?-?-?-?-?-?-?-?- Effaced St Visit Note 10/23/24 -?-?-?-?-?-?-?-?-?-?-?-?- 8w 5d 142 lb 8 oz (+8 oz) 121/66 -?-?-?-?-?-?-?-?-?-?-?-?- 170 -?-?-?-?-?-?-?-?-?-?-?-?- KW- CRL cons wit h dates. denies NIPT. 11/19/24 -?-?-?-?-?-?-?-?-?--?-?-?- 12w 4d 138 lb 8 oz (-3 lb 8 oz) 106/67 Negative -?-?-?-?-?-?-?-?-?-?-?-?- Negative 145 -?-?-?-?-?-?-?-?-?-?-?-?- SM- no vb crmapi ng still having nausea ACOG First Trimester First Trimester: Desire for , Alcohol, Tobacco Cessation, Illicit/Recreational Drug/Substance Use, Intimate Partner Violence, Barriers to care, Anticipated Course of Care, Use of Any medications, Sexual activity, Exercise, Dental Care, Sauna/Hot tub use, Seat Belt use, Childbirth classes/Hospital facilities, Travel, Indications for Ultrasound and Screening for Aneuploidy; Discussed Unstable Housing, Discussed Communication Barriers, Discussed Environmental/Work Hazards, Discussed Toxoplasmosis Precations and Discussed Second Trimester Second Trimester: Signs and Symptoms of Labor, Selecting a care provider, Reproductive Life Planning & Contreception, Care Planning, Depression/Anxiety and Intimate Partner Violence; Discussed Tobacco Cessation Third Trimester Third Trimester: Pain Management Plans, Labor support person(s), Immediate Larc, Signs and Symptoms of Preeclampsia, Infant Feeding No , [place] Education and Family Medical Leave or Disability Forms Results POC Urinalysis 2 Dip (Clinic) Office Urine Glucose Negative Last Edit by Glenna Linder on 11/19/24 15 :24 Office Urine Protein Negative Last Edit by Glenna Linder on 11/19/24 15 :24 Coding Level of Care Code OB Routine Diagnoses 12 weeks gestation of Z3A.12 Weeks of gestation: 12 weeks Supervision of normal Z34.90 Assessment and Plan Assessment and Plan (1) : Status: Acute Qualifiers: Weeks of gestation: 12 weeks Qualified Code(s): Z3A.12 - 12 weeks gestation of Comment: Discussed genetic/carrier testing - undecided (2) Supervision of normal : Status: Acute Comment: PRR, , LAVELLE 05/30/25, PC: [employer], : Frank Orders: Orders POC Urinalysis 2 Dip (Clinic) Today 11/19/24 9738 <Electronically signed by Karlie scott MD> Date _ Karlie De Leon MD Cosigner Signature: Date (if applicable) CC: ~ [place] [employer] [facility] Work Phone: 1(259) 429-283605-09-2025 Evaluation note* Diagnosis Onset Date Resolution Status Admit Date acute October 23, 2024 12:50pm Supervision of normal acut e October 23, 2024 12:50pm [facility] Work Phone: 1([phone]) 224-138605-09-2025 Evaluation note* Diagnosis Onset Date Resolution Status Admit Date acute October 23, 2024 12:50pm Supervision of normal acut e October 23, 2024 12:50pm acute November 19, 2024 3:13pm Supervision of normal acut e November 19, 2024 3:13pm [place] [employer] Work Phone: 1([phone]) 242-848905-09-2025 Evaluation note* Diagnosis Onset Date Resolution Status Admit Date acute October 23, 2024 12:50pm Supervision of normal acut e October 23, 2024 12:50pm acute November 19, 2024 3:13pm Supervision of normal acut e November 19, 2024 3:13pm acute December 16, 2024 8:34am Supervision of normal acut e December 16, 2024 8:34am [place] [employer] Work Phone: [phone] 652-177405-09-2025 Evaluation note* Diagnosis Onset Date Resolution Status Admit Date acute October 23, 2024 12:50pm Supervision of normal acut e October 23, 2024 12:50pm acute November 19, 2024 3:13pm Supervision of normal acut e November 19, 2024 3:13pm acute December 16, 2024 8:34am Supervision of normal acut e December 16, 2024 8:34am Choroid plexus cyst acute January 13, 2025 9:45am Low-lying placenta acute December 172024 9:45am acute January 13 9:45am Supervision of normal acut e January 13, 2025 9:45am [facility] Work Phone: 1([phone] 912-705804-24-2025 Evaluation + Plan note* Assessment & Plan Note - Jie Greenberg DO - 10/08/2024 9:08 AM EDTAssociated Problem(s): Encounter for wellness examination in adult - We discussed making a follow-up visit with dermatology -We discussed checking to see when she would be due for her next Pap examination -We discussed wearing sunscreen -We discussed other general wellness issues [facility] Work Phone: [phone]) 160-381504-24-2025 Miscellaneous Notes* Assessment & Plan Note - Jie Greenberg DO - 10/08/2024 9:08 AM EDTAssociated Problem(s): Encounter for wellness examination in adult - We discussed making a follow-up visit with dermatology -We discussed checking to see when she would be due for her next Pap examination -We discussed wearing sunscreen -We discussed other general wellness issues documented in this [facility] Work Phone: [phone]) 837-182004-24-2025 History of Present illness Narrative* Jie Greenberg DO - 10/08/2024 8:40 AM EDT Subjective Patient ID: Priyanka Chavira is a 29 y.o. female who presents for Annual Exam. HPI She is here today for her routine annual wellness checkup. She is looking well and also reports feeling well. Her blood pressure is excellent. We discussed cancer screening and she had her last Pap examination on January 06, 2024. All was well. She will be checking with her immunohematologist for recommendations on when she should return for another checkup. She also went to the personal consultant per my recommendation and they saw several moles that were of concern. She states they were removed that day andshe had no actual cancer but she was advised to return in 1 year for reevaluation. I am reminding her to make the appointment. We also discussed the importance of wearing sunscreen. We also discusseddoing a screening lipid profile and she wants to research cost and will get back with me. We also discussed healthy weight and I went over the BMI chart with her. She does exercise. We discussed how the BMI charting can be a little bit misleading. At this point she appears to be doing well and if everything goes according to plan we will see her again in 1 year for a wellness checkup Review of Systems Constitutional: Negative for fatigue. Respiratory: Negative for cough, shortness of breath and wheezing. Cardiovascular: Negative for chest pain, palpitations and leg swelling. Gastrointestinal: Negative for abdominal pain, blood in stool, diarrhea, nausea and vomiting. Musculoskeletal: Negative for arthralgias and back pain. Objective Physical Exam Vitals and nursing note reviewed. Constitutional: General: She is not in acute distress. Appearance: Normal appearance. HENT: Head: Normocephalic and atraumatic. Eyes: Conjunctiva/sclera: Conjunctivae normal. Cardiovascular: Rate and Rhythm: Normal rate and regular rhythm. Heart sounds: Normal heart sounds. Pulmonary: Effort: No respiratory distress. Breath sounds: No wheezing. Abdominal: Palpations: Abdomen is soft. Tenderness: There is no abdominal tenderness. There is no guarding. Musculoskeletal: General: No swelling. Normal range of motion. Skin: General: Skin is warm and dry. Neurological: General: No focal deficit present. Mental Status: She is alert and oriented to person, place, and time. Psychiatric: Behavior: Behavior normal. Assessment/Plan Problem List Items Addressed This Visit ICD-10-CM Encounter for wellness examination in adult - Primary Z00.00 - We discussed making a follow-up visit with dermatology -We discussed checking to see when she would be due for her next Pap examination -We discussed wearing sunscreen -We discussed other general wellness issues Patient instructions As we discussed please call your personal consultant to make a follow-up visit for 1 year. Please check with your immunohematologist on when you need to return for a follow-up visit. Please do not hesitate to call if you have any questions or concerns and we will see you back in approximately 1 year Jie Greenberg DO documented [facility] Work Phone: [phone]) 450-409104-24-2025 Instructions* Patient Instructions* Jie Greenberg DO - 10/08/2024 8:40 AM EDT Patient instructions As we discussed please call your personal consultant to make a follow-up visit for 1 year. Please check with your immunohematologist on when you need to return for a follow-up visit. Please do not hesitate to call if you have any questions or concerns and we will see you back in approximately 1 year documented in this [facility] Work Phone: 1([phone]) 263-427907-22-2024 History of Present illness Narrative* Mimi De Anda MD - 01/06/2024 9:30 AM EDT Priyanka Chavira is a 28 y.o. female who is here for a routine exam. PCP = Jie Greenberg DO Chief Complaint Patient presents with Annual Exam 2020 last pap Presents for annual exam. She voices no complaints and is doing well. Denies any bowel or bladder problems. Denies any breast problems. Last menstrual period December 10, 2023. Not using anything for contraception at this time. OB History No obstetric history on file. Social History Substance and Sexual Activity Sexual Activity Not on file Current contraception: None Past Medical History: Diagnosis Date Calculus of kidney 03/29/2022 Left nephrolithiasis Past Surgical History: Procedure Laterality Date OTHER SURGICAL HISTORY 03/29/2022 No history of surgery Past med hx and past surg hx reviewed and notable for: none Review of Systems: Constitutional: No fever or chills Respiratory: No shortness of breath, or cough Cardiovascular: No chest pain or syncope Breasts: No breast pain, no masses, no nipple discharge Gastrointestinal: No nausea, vomiting, or diarrhea, no abdominal pain Genitourinary: No dysuria or frequency Gynecology: Negative except as noted in history of present illness All other: All other systems reviewed and negative for complaint Objective BP 92/64 (BP Location: Left arm, Patient Position: Sitting, BP Cuff Size: Adult) Wt 58.6 kg (129 lb 3.2 oz) LMP 12/10/2023 (Approximate) BMI 23.63 kg/m PHYSICAL EXAMINATION: Well-developed, well nourished, in no acute distress, alert and oriented x three, is pleasant and cooperative. HEENT: Clear. Pupils equal, round and reactive to light and accommodation. Extraocular muscles are intact. Oral mucosa pink without exudate. NECK: No lymphadenopathy, no thyromegaly. BREASTS: Symmetric, no palpable masses. No nipple discharge or retraction. LUNGS: Clear bilaterally. HEART: Regular rate and rhythm without murmurs. ABDOMEN: Normoactive bowel sounds, soft and nontender, no guarding or rebound tenderness, no CVA tenderness. EXTREMITIES: No clubbing, cyanosis or edema. NEUROLOGIC: Cranial nerves II-XII grossly intact. : Normal external female genitalia, normal vulva, normal vagina. Normal urethral meatus, urethra and bladder. Normal appearing cervix. Normal-sized uterus, no adnexal masses or tenderness. Pap smear performed today. Actions performed during this visit include: - Clinical breast exam - Clinical pelvic exam - No orders of the defined types were placed in this encounter. Problem List Items Addressed This Visit None Visit Diagnoses Encounter for Papanicolaou smear for cervical cancer screening - Primary Healthcare maintenance Encounter for annual routine gynecological examination Provider Impression: 1. Annual Thank you for coming to your annual exam. Your findings during the exam were normal. Please return for your next visit in 1 year. [facility] Work Phone: [phone]) 563-618004-18-2024 Evaluation + Plan note* Assessment & Plan Note - Jie Greenberg DO - 10/03/2023 4:44 PM EDTAssociated Problem(s): Lipid screening -She will go for a fasting lipid profile at her earliest convenience and have agreed to contact herwith result [facility] Work Phone: 1([phone]) 352-806804-18-2024 Evaluation + Plan note* Assessment & Plan Note - Jie Greenberg DO - 10/03/2023 4:44 PM EDTAssociated Problem(s): Multiple atypical skin moles -I am giving her handout on ways to recognize changes in moles that might be concerning -I do want her to go for a full body skin inspection with dermatology because she does have multiple moles and freckles and 1 on the back that deserves attention -Will remind her to wear sunscreen and avoid sun exposure if at all possible [facility] Work Phone: [phone]) 429-143804-18-2024 Miscellaneous Notes* Assessment & Plan Note - Jie Greenberg DO - 10/03/2023 4:44 PM EDTAssociated Problem(s): Lipid screening -She will go for a fasting lipid profile at her earliest convenience and have agreed to contact herwith result * Assessment & Plan Note - Jie Greenberg DO - 10/03/2023 4:44 PM EDT Associated Problem(s): Multiple atypical skin moles -I am giving her handout on ways to recognize changes in moles that might be concerning -I do want her to go for a full body skin inspection with dermatology because she does have multiple moles and freckles and 1 on the back that deserves attention -Will remind her to wear sunscreen and avoid sun exposure if at all possible documented in this [facility] Work Phone: [phone]) 350-843604-18-2024 History of Present illness Narrative* Jie Greenberg DO - 10/03/2023 4:00 PM EDT Subjective Patient ID: Priyanka Chavira is a 28 y.o. female who presents for Follow-up. HPI She is here today for a checkup. We last saw her in March 2022. We briefly discussed kidney stones we also discussed an atypical mole on her back. We had referred her to a personal consultant but she haddifficulties getting in. She states she would like to go ahead and get evaluated so we will be referring her to dermatology. She does have multiple moles and freckles and 1 on her back looks a littlebit atypical. I did take a picture of it with her following for a point of reference. I will also give her a handout that talks about what to look for with changes in moles and freckles. Otherwise we did conduct a full review of systems and she reports feeling well. She also has an excellent blood pressure and her weight is perfect for her height. We talked about doing a screening lipid profile and when the results come back we will contact her. We also discussed Pap exams and it has been a few years since she had a checkup. We will get her into a female immunohematologist for further evaluation. We talked about a follow-up visit in 1 year and she is welcome to return but I told her if she sees a immunohematologist every year she would not necessarily need to come here unless she is having a specific problem. Review of Systems Constitutional: Negative for fatigue. Respiratory: Negative for cough, shortness of breath and wheezing. Cardiovascular: Negative for chest pain, palpitations and leg swelling. Gastrointestinal: Negative for abdominal pain, blood in stool, diarrhea, nausea and vomiting. Musculoskeletal: Negative for arthralgias and back pain. Objective Physical Exam Vitals and nursing note reviewed. Constitutional: General: She is not in acute distress. Appearance: Normal appearance. HENT: Head: Normocephalic and atraumatic. Eyes: Conjunctiva/sclera: Conjunctivae normal. Cardiovascular: Rate and Rhythm: Normal rate and regular rhythm. Heart sounds: Normal heart sounds. Pulmonary: Effort: No respiratory distress. Breath sounds: No wheezing. Abdominal: Palpations: Abdomen is soft. Tenderness: There is no abdominal tenderness. There is no guarding. Musculoskeletal: General: No swelling. Normal range of motion. Skin: General: Skin is warm and dry. Neurological: General: No focal deficit present. Mental Status: She is alert and oriented to person, place, and time. Psychiatric: Behavior: Behavior normal. Assessment/Plan Problem List Items Addressed This Visit ICD-10-CM Multiple atypical skin moles - Primary D22.9 -I am giving her handout on ways to recognize changes in moles that might be concerning -I do want her to go for a full body skin inspection with dermatology because she does have multiple moles and freckles and 1 on the back that deserves attention -Will remind her to wear sunscreen and avoid sun exposure if at all possible Relevant Orders Referral to Dermatology Lipid screening Z13.220 -She will go for a fasting lipid profile at her earliest convenience and have agreed to contact herwith result Relevant Orders Lipid panel Jie Greenberg DO documented in this encounterUnAC[facility] Work Phone: [phone]) [phone] Instructions* Patient Instructions* Jie Greenberg DO - 10/03/2023 4:00 PM EDT As we discussed the staff will be giving you a handout today on how to look at moles and look for changes or things that are concerning The staff will also be happy to get an appointment with dermatology for a full body skin inspection The staff will also be helping to get an appointment to get your Pap caught up I have ordered a cholesterol profile and whenever you can go fasting please get it done and I will call you with the results. We typically like anywhere from 8 to 12 hours of fasting. For example if you decided to come to the lab at 8 AM we would simply asked that you cut off anything with caloriesafter 8 PM the night before. You can have water and in fact we encourage you to drink lots of water for your lab draw. You can also have coffee as long as you do not put cream or sugar in it We can see you back as needed and if you want to schedule a 1 year follow-up visit we can make thathappen documented in this encounterOhio[facility] Work Phone: Evaluation note* Diagnosis Multiple atypical skin moles- Primary Healthcare maintenance Encounter for wellness examination in adult Lipid screening Screening for lipoid disorders documented in this encounter [facility] Work Phone: Evaluation note* Diagnosis Multiple atypical skin moles- Primary Healthcare maintenance Encounter for wellness examination in adult Lipid screening Screening for lipoid disorders Encounter for Papanicolaou smear for cervical cancer screening- Primary Healthcare maintenance Encounter for annual routine gynecological examination documented in this encounter [facility] Work Phone: Evaluation note* Diagnosis Multiple atypical skin moles- Primary Healthcare maintenance Encounter for wellness examination in adult Lipid screening Screening for lipoid disorders Encounter for wellness examination in adult- Primary documented in this encounter [facility] Work Phone: Evaluation note* Diagnosis Multiple atypical skin moles- Primary Healthcare maintenance Encounter for wellness examination in adult Lipid screening Screening for lipoid disorders Encounter for wellness examination in adult- Primary Right lower quadrant abdominal pain- Primary documented in this encounter [facility] Work Phone: Reason for referral (narrative)* Consultation (Routine) - Authorized Specialty Diagnoses / Procedures Referred By Jordan langston Referred To Contact Primary Care Procedures Follow Up In Primary Care Jie Greenberg DO [address] [place] [address] Referral ID Status Reason Start Date Expiration Date V isits Requested Visits Authorized [id number] Authorized 10/03/2023 10/02/2024 1 1 * Consultation (Routine) - Authorized Specialty Diagnoses / Procedures Referred By Jordan langston Referred To Contact Obstetrics and Gynecology Diagnoses Healthcare maintenance Jie Greenberg DO [address] [facility] [place] [address] Referral ID Status Reason Start Date Expiration Date Visits Requested Visits Authorized [id number] Authorized Specialty Services Required 10/03/2023 10/02/2024 1 1 * Consultation (Routine) - Closed Specialty Diagnoses / Procedures Referred By Jordan langston Referred To Contact Dermatology Diagnoses Multiple atypical skin moles Jie Greenberg DO [address] [place] [address] Rosibel Johnson MD [address] [facility] [place] [address] Referral ID Status Reason Start Date Expiration Date V isits Requested Visits Authorized [id number] Closed Specialty Services Required 10/03/2023 10/02/2024 1 1 [facility] Work Phone: Reason for referral (narrative)No reason for referral information availableWGood Samaritan Hospital Work Phone: Chief Complaint * Pt is here today to get re est with PCP. This note was generated by using [employer] software. It may contain errors in wording, punctuate, or spelling. * She is here today to get established and she explains that many months ago she moved from [place]. She states she is originally from [place]. She has a 6-month-old baby girl and also a second child. She is still nursing. She looks well and she reports feeling well. We did conduct a full review of systems. She states that during her however she did have an obstructing kidney stone on the left side and she had to have a stent placed. She states everything went well after her treatment. Wetalked about likely getting periodic checkups for kidney stones and we will try to get a copy of her previous records. She states she is also had a relatively recent Pap exam and to the best of her knowledge everything was normal. She will check with her immunohematologist regarding when she should go back for reevaluation but it sounds like she could go every other year or every third year as long as everything is okay. We also discussed the importance of healthy diet and exercise and she does walk regularly. In fact she has done well with her post weight but she wants to get back even lower. I will give her a handout that talks about nutrition and weight loss. I am also giving her handout on kidney stones. I have also recommended this years flu vaccine. On today's exam she appears healthy but she does have several moles and freckles and I would like to refer her to personal consultant for a full body skin inspection. If everything goes well we will see her back on an annual basis and sooner if any problems. * Pt is here today to get re est with PCP. This note was generated by using [employer] software. It may contain errors in wording, punctuate, or spelling. * She is here today to get established and she explains that many months ago she moved from [place]. She states she is originally from [place]. She has a 6-month-old baby girl and also a second child. She is still nursing. She looks well and she reports feeling well. We did conduct a full review of systems. She states that during her however she did have an obstructing kidney stone on the left side and she had to have a stent placed. She states everything went well after her treatment. Wetalked about likely getting periodic checkups for kidney stones and we will try to get a copy of her previous records. She states she is also had a relatively recent Pap exam and to the best of her knowledge everything was normal. She will check with her immunohematologist regarding when she should go back for reevaluation but it sounds like she could go every other year or every third year as long as everything is okay. We also discussed the importance of healthy diet and exercise and she does walk regularly. In fact she has done well with her post weight but she wants to get back even lower. I will give her a handout that talks about nutrition and weight loss. I am also giving her handout on kidney stones. I have also recommended this years flu vaccine. On today's exam she appears healthy but she does have several moles and freckles and I would like to refer her to personal consultant for a full body skin inspection. If everything goes well we will see her back on an annual basis and sooner if any problems. Family History Unknown Family Member Name Dates Details No pertinent family history: Mother, Father(V49.89, Z78.9) Status:Active Unknown Family Member Name Dates Details No pertinent family history: Mother, Father(V49.89, Z78.9) Status:Active Relationship Condition Age at Onset Recorded Date/T sundar mother Disorder of thyroid Unknown grandfather Malignant neoplasm of lung Unknown father Hypertension Unknown grandmother Acute Crohn's disease Unknown Summary Purpose Advance Directives No Advanced Directives Records FoundNo Advanced Directives Records FoundNo Advanced Directives Records Found Chief Complaint and Reason for Visit Chief Complaint Admit Date HCG, verify October 07, 2024 9 :27am Amb Documentation October 16, 2024 9:25am SCHOOL PATROL OB LMP 08/23, LAVELLE 05/30October 23, 2024 12:50pm Reason for Visit Admit Date October 23, 2024 12:50p m Supervision of normal October 23, 2024 12:50pm Chief Complaint Admit Date HCG, verify October 07, 2024 9 :27am Amb Documentation October 16, 2024 9:25am SCHOOL PATROL OB LMP 08/23, LAVELLE 05/30October 23, 2024 12:50pm 12wk OB November 19, 2024 3:13p m Reason for Visit Admit Date October 23, 2024 12:50p m Supervision of normal October 23, 2024 12:50pm November 19, 2024 3:13p m Supervision of normal November 3:13pm Chief Complaint Admit Date HCG, verify October 07, 2024 9 :27am Amb Documentation October 16, 2024 9:25am SCHOOL PATROL OB LMP 08/23, LAVELLE 05/30October 23, 2024 12:50pm 12wk OB November 19, 2024 3:13p m 16 wk ob December 16, 2024 8:34a m Reason for Visit Admit Date October 23, 2024 12:50p m Supervision of normal October 23, 2024 12:50pm November 19, 2024 3:13p m Supervision of normal November 3:13pm December 16, 2024 8:34a m Supervision of normal December 8:34am Chief Complaint Admit Date HCG, verify October 07, 2024 9 :27am Amb Documentation October 16, 2024 9:25am SCHOOL PATROL OB LMP 08/23, LAVELLE 05/30October 23, 2024 12:50pm 12wk OB November 19, 2024 3:13p m 16 wk ob December 16, 2024 8:34a m 20 WK OB January 13, 2025 9:45 am Reason for Visit Admit Date October 23, 2024 12:50p m Supervision of normal October 23, 2024 12:50pm November 19, 2024 3:13p m Supervision of normal November 3:13pm December 16, 2024 8:34a m Supervision of normal December 8:34am Choroid plexus cyst January 13, 2025 9:45 am Low-lying placenta January 13, 2025 9:45 am January 13, 2025 9:45 am Supervision of normal December 9:45am Additional Source Comments Reason for Visit (unrecogniz ed section and content) Reason Comments Follow-up Reason Comments Annual Exam 2020 last pap Specialty Diagnoses / Procedures Referred By Contac t Referred To Contact Obstetrics and Gynecology Diagnoses Healthcare maintenance Jie Greenberg DO [address] [place] [address] Referral ID Status Reason Start Date Expiration Date Visits Requested Visits Authorized [id number] Authorized Specialty Services Required 10/03/2023 10/02/2024 1 1 Reason Comments Annual Exam Specialty Diagnoses / Procedures Referred By Contac t Referred To Contact Primary Care Procedures Follow Up In Primary Care Jie Greenberg DO Phone: tel: fax: Referral ID Status Reason Start Date Expiration Date V isits Requested Visits Authorized [id number] Authorized 10/03/2023 10/02/2024 1 1 Reason Comments Abdominal Pain Pt. Is 21wks pregnan t, reports sudden R-sided abd. 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 Care Teams (unrecognized sec tion and content) Operating Room Technologist Relationship Specialty Start Date End Date Jie Greenberg DO [address] [place] [address] PCP - General 03/29/22 Jie Greenberg DO [address] [place] [address] PCP - Ayush MARINOO PCP 02/15/23 Operating Room Technologist Relationship Specialty Start Date End Date Jie Greenberg DO [address] [place] [address] PCP - General 03/29/22 Jie Greenberg DO [address] [facility] Medical Office [place] [id number] PCP - [place] [facility] PCP 02/15/23 Operating Room Technologist Relationship Specialty Start Date End Date Jie Greenberg DO PCP - General 03/29/22 Jie Greenberg DO [address] [address] PCP - Ayush ACO PCP 02/15/23 Team Status: Inactive Member Role Status Dates Dr. Liz Ca DO Attending Provider Activ e Start: October 07, 2024 End: October 07, 2024 Team Status: Inactive Member Role Status Dates Dr. Liz Ca DO Attending Provider Activ e Start: October 07, 2024 End: October 07, 2024 Dr. Liz Ca DO Referring Provider Activ e Start: October 07, 2024 End: October 07, 2024 Team Status: Active Member Role Status Dates Heather Lee RN Attending Provider Active St art: October 16, 2024 Team Status: Inactive Member Role Status Dates Missy Fuentes CNM Attending Provider Active S tart: October 23, 2024 End: October 23, 2024 Team Status: Inactive Member Role Status Dates Missy Fuentes CNM Attending Provider Active S tart: October 23, 2024 End: October 23, 2024 Missy Fuentes CNM Referring Provider Active S tart: October 23, 2024 End: October 23, 2024 Team Status: Inactive Member Role Status Dates Dr. Karlie De Leon MD Attending Provider Active Start: November 19, 2024 End: November 19, 2024 Team Status: Inactive Member Role/Relationship Status Dates Dr. Liz Ca DO Attending Provider Activ e Start: October 07, 2024 End: October 07, 2024 Team Status: Inactive Member Role/Relationship Status Dates Dr. Liz Ca DO Attending Provider Activ e Start: October 07, 2024 End: October 07, 2024 Dr. Liz Ca DO Referring Provider Activ e Start: October 07, 2024 End: October 07, 2024 Team Status: Active Member Role/Relationship Status Dates Heather Lee RN Attending Provider Active St art: October 16, 2024 Team Status: Inactive Member Role/Relationship Status Dates Missy Fuentes CNM Attending Provider Active S tart: October 23, 2024 End: October 23, 2024 Team Status: Inactive Member Role/Relationship Status Dates Missy Fuentes CNM Attending Provider Active S tart: October 23, 2024 End: October 23, 2024 Missy Fuentes CNM Referring Provider Active S tart: October 23, 2024 End: October 23, 2024 Team Status: Inactive Member Role/Relationship Status Dates Dr. Karlie De Leon MD Attending Provider Active Start: November 19, 2024 End: November 19, 2024 Team Status: Inactive Member Role/Relationship Status Dates Radha Varghese SCHOOL PATROL, SCHOOL PATROL-C Attending Provider Active Start: December 16, 2024 End: December 16, 2024 Team Status: Inactive Member Role/Relationship Status Dates Radha Varghese SCHOOL PATROL, SCHOOL PATROL-C Attending Provider Active Start: January 13, 2025 End: January 13, 2025 Operating Room Technologist Relationship Specialty Start Date End Date Jie Greenberg DO [address] [place] [address] PCP - Ayush MARINOO PCP 02/15/23 Jie Greenberg DO [address] [address] PCP - General Internal Medicine 01/21/25 INFORMATION SOURCE (unrecogn ized section and content) DATE CREATED AUTHOR 10/09/2024 [facility] DATE CREATED AUTHOR AUTHOR'S ORGANIZ ATION 01/06/2025 [facility] DATE CREATED AUTHOR AUTHOR'S ORGANIZ ATION 01/15/2025 [facility] Goals (unrecognized section and content) Goals may be documented in a n alternate sectionGoals may be documented in an alternate sectionGoals may be documented in an alternate sectionGoals may be documented in an alternate section Scheduled Active and Recently Administ ered Medications (unrecognized section and content) Medication Order 01/20/2025 01/21/2025 01/22/2025 fentaNYL PF (Sublimaze) injection 50 mcg (COMPLETED) 50 mcg, intravenous, Once, On Sat01/22/25 at 0015, For 1 dose 0045 (Given - Provid er: Pari Melton RN) morphine injection 2 mg (COMPLETED) 2 mg, intravenous, Once, On Manasa 01/21/25 at 2325, For 1 dose 2331 (Given - Provider: Pari Melton RN) ondansetron (Zofran) injection 4 mg (COMPLETED) 4 mg, intravenous, Once, On Manasa 01/21/25 at 2325, For 1 dose, When administering via IV Push, administer over 3-5 minutes. 2329 (Given - Provider: Pari Melton, MAXINE) ondansetron (Zofran) injection 4 mg (COMPLETED) 4 mg, intravenous, Once, On Sat01/22/25 at 0020, For 1 dose, When administering via IV Push, administer over 3-5 minutes. 0022 (Given - Provid er: Pari Melton RN) promethazine (Phenergan) 12.5 mg in sodium chloride 0.9% 50 mL IV (COMPLETED) 12.5 mg, intravenous, Administer over 15 Minutes, Once, On Sat01/22/25 at 0055, For 1 dose 0103 (New Bag - Provider: Pari Melton RN)0121 (Stopped - Provider: Yady Call, MAXINE) promethazine (Phenergan) 12.5 mg in sodium chloride 0.9% 50 mL IV (COMPLETED) 12.5 mg, intravenous, Administer over 15 Minutes, Once, On Sat01/22/25 at 0130, For 1 dose 0134 (New Bag - Provider: Yady Call, MAXINE)0150 (Stopped - Provider: Yady Call RN) sodium chloride 0.9 % bolus 500 mL (COMPLETED) 500 mL, intravenous, at 500 mL/hr, Administer over 1 Hours, Once, On Manasa 01/21/25 at 2325, For 1 dose 2328 (New Bag - Provider: Pari Melton RN) 0115 (Stopped - Provider: Yady Call RN) sodium chloride 0.9 % bolus 500 mL (COMPLETED) 500 mL, intravenous, at 500 mL/hr, Administer over 1 Hours, Once, On Sat01/22/25 at 0130, For 1 dose 0136 (New Bag - Provider: Yady Call RN)0205 (Stopped - Provider: Pari Melton RN) Continuous Medication Order 01/20/2025 01/21/2025 01/22/2025 sodium chloride 0.9% infusion 125 mL/hr, intravenous, Continuous, Starting on Manasa 01/21/25 at 2325, For 1 day 0120 (New Bag - Prov ider: Yady Call RN)0205 (Stopped - Provider: Pari Melton RN) FOR RECORDS PERTAINING TO PATIENTS WHO ARE OR HAVE BEEN ENROLLED IN A CHEMICAL DEPENDENCY/SUBSTANCEABUSE PROGRAM, SOME INFORMATION MAY BE OMITTED. This clinical summary was aggregated from multiple sources. Caution should be exercised in using it in the provision of clinical care. This summary normalizes information from multiple sources, and as a consequence, information in this document may materially change the coding, format and clinical context of patient data. In addition, data may be omitted in some cases. CLINICAL DECISIONS SHOULD BE BASED ON THE PRIMARY CLINICAL RECORDS. [email or web address] [facility]. provides no warranty or guarantee of the accuracy or completeness of information in this document.
[2025-01-22 03:39] LABS: Mucous, Urine 1+ /hpf (<or=2+); Red Blood Cells-Urine 0-5 SEEN /hpf (0-5); Squamous Epithelial Cells - UA 0-5 SEEN /hpf (5-10)
[2025-01-22 03:40] LABS: Transitional Epithelial - Ur 0-5 SEEN /hpf (0-5)
[2025-01-22 04:54] VITALS: BP 101/56; PULSE 62; RESP 16; TEMP 36.7; O2SAT 96
== END 2025-01-22 04:54 | disposition home or self-care (01) ==
PROVIDERS: Emergency Provider Emergency Medicine; PCP Internal Medicine; Visit Provider Emergency Medicine
DX: O26.892 Other specified pregnancy related conditions, second trimester (principal); R10.9 Unspecified abdominal pain; Z87.891 Personal history of nicotine dependence; Z3A.21 21 weeks gestation of pregnancy
CPT/HCPCS: 81001; 87086; 87088; 99284

== ENCOUNTER → 2025-03-11 | Outpatient (CLI) | payer BC, SELFPAY ==
[2025-03-11 11:16] LABS: Hematocrit 35.4 % (37-47); Hemoglobin 12.4 g/dL (12.0-15.0); Immature Granulocytes Count 0.100 X10^3/uL (0.0-0.0); Mean Corp Hgb Conc 35.0 g/dL (32-36); Mean Corpuscular Volume 94.1 fL (81-99); Mean Platelet Vol. 9.6 fl (6.2-12.0); NRBC Flagged by Analyzer 0 % (0-5); Platelet Count 271 K/mm3 (150-450); RBC Distribution Width CV 12.7 % (11.6-14.6); RBC Distribution Width SD 43.5 fl (35.1-43.9); Red Blood Count 3.76 M/mm3 (4.2-5.4); White Blood Count 7.7 K/mm3 (4.4-11.0)
[2025-03-11 12:23] LABS: Glucose Challenge Gest 1H 50g 67 mg/dL (70-140); HIV Nonreactive (Nonreactive); Syphilis Antibodies Nonreactive (Nonreactive)
== END | disposition home or self-care (01) ==
LOC: LAB 09:57
PROVIDERS: PCP Internal Medicine; Referring Provider Obstetrics & Gynecology; Visit Provider Obstetrics & Gynecology
DX: Z34.82 Encounter for supervision of other normal pregnancy, second trimester (principal); Z13.1 Encounter for screening for diabetes mellitus
CPT/HCPCS: 36415; 82950; 85025; 86703; 86780

== ENCOUNTER → 2025-04-07 | Outpatient (CLI) | payer BC, SELFPAY ==
[2025-04-07 13:25] LABS: Creatinine, Urine (random) 321.00 mg/dL (28.00-217.00); Protein, Urine (Random) 83.0 mg/dL (0.0-12.0); Protein:Creat Ratio 259 mg/g CRE (0-200)
== END | disposition home or self-care (01) ==
LOC: LABSPEC 10:46
PROVIDERS: PCP Internal Medicine; Visit Provider Obstetrics & Gynecology
DX: R80.9 Proteinuria, unspecified (principal)
CPT/HCPCS: 82570; 84156

== ENCOUNTER → 2025-05-05 | Outpatient (CLI) | payer BC, SELFPAY ==
[2025-05-05 13:48] LABS: Glucose Challenge Gest 1H 50g 118 mg/dL (70-140)
== END | disposition home or self-care (01) ==
LOC: BWCLAB 10:16
PROVIDERS: PCP Internal Medicine; Visit Provider Advanced Practice Midwife
DX: O40.3XX0 Polyhydramnios, third trimester, not applicable or unspecified (principal); Z3A.36 36 weeks gestation of pregnancy; Z13.1 Encounter for screening for diabetes mellitus
CPT/HCPCS: 36415; 82950; 87077; 87081; 87186

== ENCOUNTER 2025-06-01 14:00 | Inpatient (IN) | payer BC, SELFPAY ==
[2025-06-01] VITALS (70 sets, daily range): BP systolic 101–139; BP diastolic 53–85; PULSE 66–134; RESP 12–18; TEMP 36.2–36.6; O2SAT 95–100; BMI 30.9; BMI 31.4
[2025-06-01 11:32] LABS: Hematocrit 35.7 % (37-47); Hemoglobin 12.6 g/dL (12.0-15.0); Mean Corp Hgb Conc 35.3 g/dL (32-36); Mean Corpuscular Volume 92.7 fL (81-99); Mean Platelet Vol. 9.8 fl (6.2-12.0); Platelet Count 218 K/mm3 (150-450); RBC Distribution Width CV 12.7 % (11.6-14.6); RBC Distribution Width SD 43.2 fl (35.1-43.9); Red Blood Count 3.85 M/mm3 (4.2-5.4); White Blood Count 9.4 K/mm3 (4.4-11.0)
[2025-06-01 11:51] LABS: AST(SGOT) 23 U/L (<=31); Alanine Aminotransfer ALT/SGPT 11 U/L (<=34); Estimated Creatinine Clearance 151.81 ml/min (50-250); Uric Acid 3.4 mg/dL (2.6-6.0)
[2025-06-01 11:54] LABS: Creatinine, Urine (random) 132.00 mg/dL (28.00-217.00); Protein, Urine (Random) 24.6 mg/dL (0.0-12.0); Protein:Creat Ratio 186 mg/g CRE (0-200)
[2025-06-01 12:02] LABS: ROM Internal Control Test YES-OK TO RESULT pt. (Internal QC); ROM Patient Test Negative (Negative); Record Kit Lot#, ROM+ K3607
[2025-06-01] MEDS: Lactated Ringers 1,000 ML 50 ML IV (14:53)
[2025-06-01] MEDS: 0.9% Saline Lock 10 ML Syringe IV (14:54)
[2025-06-01] MEDS: Penicillin G Pot 5,000,000 UNITS in 0.9% Normal Saline (100mL MB+) 100 ML 150 UNITS IV (14:57)
[2025-06-01 15:14] LABS: Syphilis Antibodies Nonreactive (Nonreactive)
--- NOTE | 2025-06-01 15:39 | HP.PCM.OB_ITS ---
HPI - General General Date of Admission: 06/01/25 Date of Service: 06/01/25 HPI Narrative HILL BETH, is a 30 F at 40.2 who presents to unit for pre e labs for an elevated bp in the office. she had a deceleration on the monitor and decision made for admission. Maternal Data Information LAVELLE Calculator Estimated Delivery Date Method Current WG Current Estimate 05/30/25 LMP (Certain) 40w 2d Other Estimates 05/29/25 Ultrasound #1 40w 3d PFSH PFSH Medical History Kidney stones Home Medications ?Medication ?Instructions ?Recorded ?Last Taken ?Type vits no.126-ferrous fum 1 tab PO DAILY 06/01/25 History 28 mg iron-folic acid 800 mcg tablet (Classic ) ondansetron 4 mg disintegrating 4 mg PO Q6H PRN nausea and 10/23/24 Unknown Rx tablet vomiting #30 tabs Allergy/AdvReac Type Severity Reaction Status Date / Time No Known Allergies Allergy Verified 06/01/25 14:15 Family History Mother Thyroid disorder Grandfather Lung cancer Father Hypertension Grandmother Acute Crohn's disease Surgical History S/P ureteral stent placement Social History adopted: No household members: spouse and children number of children: 2 current occupational status: employed current occupation: [employer]ing (works from home) current occupational exposures/hazards: No pets and animals: Yes pets and animals: dog(s) history of recent travel: No sexually active: Yes Smoking Status: Former smoker how long ago did patient quit smoking: In high school second hand exposure: No quit status: quit date established alcohol intake: current alcohol intake frequency: holidays/special occasions only substance use type: does not use well-balanced diet: daily or most days caffeine: Yes Type: coffee Number of servings: 1 eating out: 1-3 times/week during the past year weight has: remained stable what type of physical activity do you participate in: walking frequency: daily duration: 30-45 minutes/day susie/zoroastrianism: None seatbelt use: always do you feel safe at home: Yes additional social history: : Frank Rios History 3 Elective abortions Hx Para 2 Spontaneous abortions 0 Hx # Term Pregnancies 2 Ectopic pregnancies Hx # Pregnancies Multiple births # of living children 2 Past Pregnancies Del. Date Name GA/Weeks Outcome Route Bth Weight Infant Gen Labor Lgth Anesthesia Del Locatn Provider FOB 01/28/14 Emmy 40 live - full term 6lbs 6oz Female epidural [facility] [place] 09/25/21 Ninoska 39 live - full term 7lbs 1.5oz Female epidural [facility] [place] Delivery Date: 01/28/14 Last Updated by: Heather Lee RN No complications Delivery Date: 09/25/21 Last Updated by: Heather Lee RN Very sick, Kidney stone - hospitalized & stent placed Visit Details Expected Delivery Route/Plan Labor Preferences- CB/BF classes: no labor support person: Frank labor intervention preferences: pain management options preferred: limited cut cord/dad catch: cord : yes PP control planned: discussed discussed possible routes of delivery and associated risks: [] special requests: [] Plans Covid status: [] Flu vaccine: dec Tdap vaccine: given Rhogam: na LARC form signed:yes movement and labor precautions reviewed. Problem list reviewed and updated with the most current plan of care details and appropriate orders placed. Relevant counseling for the gestational age provided. Continue routine care and follow up unless otherwise noted in visit notes/problem list details OB Flowsheet Initial Weight: 142 lb Date -?-?-?-?-?-?-?-?-?-?-?-?- EGA Weight BP Urine Prot -?-?-?-?-?-?-?-?-?-?-?-?- Glucose FHR FuHt Pres Dilation -?-?-?-?-?-?-?-?-?-?-?-?- Effaced St Visit Note 10/23/24 -?-?-?-?-?-?-?-?-?-?-?-?- 8w 5d 142 lb 8 oz (+8 oz) 121/66 -?-?-?-?-?-?-?-?-?-?-?-?- 170 -?-?-?-?-?-?-?-?-?-?-?-?- KW- CRL cons wit h dates. denies NIPT. 11/19/24 -?-?-?-?-?-?-?-?-?-?-?-?- 12w 4d 138 lb 8 oz (-3 lb 8 oz) 106/67 Negative -?-?-?-?-?-?-?-?-?-?-?-?- Negative 145 -?-?-?-?-?-?-?-?-?-?-?-?- - no vb crmapi ng still having nausea 12/16/24 -?-?-?-?-?-?-?-?-?-?-?-?- 16w 3d 142 lb (+0 oz) 104/60 -?-?-?-?-?-?-?-?-?-?-?-?- 145 -?-?-?-?-?-?-?-?-?-?-?-?- -No VB, crampi ng. Nausea minimal. 01/13/25 -?-?-?-?-?-?-?-?-?--?-?-?- 20w 3d 145 lb 2 oz (+3 lb 2 oz) 108/66 Negative -?-?-?-?-?-?-?-?-?-?-?-?- Negative 149 -?-?-?-?-?-?-?-?-?-?-?-?- MH-No VB. Tobias Gauthier. NO concerns. 28 wk US w MFM 03/0802/10/25 -?-?-?-?-?-?-?-?-?-?-?-?- 24w 3d 151 lb 2 oz (+9 lb 2 oz) 114/75 Negative -?-?-?-?-?-?-?-?-?-?-?-?- Negative 145 24 -?-?-?-?-?-?-?-?-?-?-?-?- JV- no lof, vagi nal bleeding, or dec fm. plan for glucola next visit 03/11/25 -?-?-?-?-?-?-?-?-?-?-?-?- 28w 4d 155 lb 7 oz (+13 lb 7 oz) 98/66 Negative -?-?-?-?-?-?-?-?-?-?-?-?- Negative 144 28 -?-?-?-?-?-?-?-?-?-?-?-?- MH-no VB, LOF. G ood Fm. Larc. 28 wk labs pending. Wants tdap next visit 03/24/25 -?-?-?-?-?-?-?-?-?-?-?-?- 30w 3d 159 lb 6 oz (+17 lb 6 oz) 112/71 Trace -?-?-?-?-?-?-?-?-?-?-?-?- Negative 140 30 -?-?-?-?-?-?-?-?-?-?-?-?- Sm- no vb lof go od fm no regular ctx 04/07/25 -?-?-?-?-?-?-?-?-?-?-?-?- 32w 3d 157 lb (+15 lb) 113/71 1+ -?-?-?-?-?-?-?-?-?-?-?-?- Negative 140 31 -?-?-?-?--?-?-?-?-?-?-?-?- SM- no vb lof go od fm no reuglar ctx. getting growth US tomorrow 04/22/25 -?-?-?-?-?-?-?-?-?-?-?-?- 34w 4d 162 lb 2 oz (+20 lb 2 oz) 112/62 Negative -?-?-?-?-?-?-?-?-?-?-?-?- Negative 135 34 -?-?-?-?-?-?-?-?-?-?-?-?- KW- no vb/lof/ct x. good fm. 05/05/25 -?-?-?-?-?-?-?-?-?-?-?-?- 36w 3d 166 lb 8 oz (+24 lb 8 oz) 109/49 Negative -?-?-?-?-?-?-?-?-?-?-?-?- Negative 150 36 Cephalic -?-?-?-?-?-?-?-?-?-?-?-?- KW- no vb/lof/ct x. good fm GBS today. repeat glucose today. AC >99%. declines SVE today 05/10/25 -?-?-?-?-?-?-?-?-?-?-?-?- 37w 1d 169 lb 6 oz (+27 lb 6 oz) 115/78 Trace -?-?-?-?-?-?-?-?-?-?-?-?- Negative 144 37 Cephalic -?-?-?-?-?-?-?-?-?-?-?-?- KV- Good FM. No ctx, LOF, or VB. GBS pos. 05/21/25 -?-?-?-?-?-?-?-?-?-?-?-?- 38w 5d 168 lb 7 oz (+26 lb 7 oz) 107/72 Negative -?-?-?-?-?-?-?-?-?-?-?-?- Negative 148 38 Cephalic 1 -?-?-?-?-?-?-?-?-?-?-?-?- KV- Good FM. No regular ctx/LOF/VB. 05/28/25 -?-?-?-?-?-?-?-?-?-?-?-?- 39w 5d 172 lb 1 oz (+30 lb 1 oz) 110/74 Negative -?-?-?-?-?-?-?-?-?-?-?-?- Negative 120 38 Cephalic -?-?-?-?-?-?-?-?-?-?-?-?- KW- no vb/lof/ct x. good fm discussed sweep vs IOL. would like to rto early next week 06/01/25 -?-?-?-?-?-?-?-?-?-?-?-?- 40w 2d 172 lb 9 oz (+30 lb 9 oz) 144/99 116/80 Negative -?-?-?-?-?-?-?-?-?-?-?-?- Negative 120 39 Cephalic 4 -?-?-?-?-?-?-?-?-?-?-?-?- 70 -2 KW- no vb/ lof/ctx. good fm. KW- no vb/lof/ctx. good fm. to wp for labs for elevated bp NST FHR Rate Baby A Baseline: 120 Variability:: Moderate Accelerations:: 15 x 15 Decelerations:: None NST Reactive:: Yes FHR Category:: Category I Uterine Activity:: irregular ROS Constitutional Constitutional: Denies change in weight, fatigue, fever(s), headache(s), poor appetite or weakness Eyes Eyes: Denies blurry vision, change in vision, floaters, seeing flashes or spots in vision ENT HEENT: Denies dizziness, headache(s), loss taste/smell or sore throat Cardiovascular Cardiovascular: Denies chest pain, dizziness, dyspnea, irregular heart rhythm, lightheadedness, palpitations or rapid heart rate Respiratory/Chest Respiratory/Chest: Denies change in mental status, chest tightness, cough, dyspnea or breast pain Gastrointestinal Gastrointestinal: Denies anorexia, chewing difficulty, constipation, diarrhea or weight changes Genitourinary Genitourinary: Denies difficulty urinating, dysuria, flank pain, genital pain, urinary frequency or urinary urgency Musculoskeletal Musculoskeletal: Denies back pain, difficulty walking, extremity pain, joint pain, muscle cramps or muscle weakness Integumentary Integumentary: Denies lesions or unusual bruising Neurologic Neurologic: Denies abnormal movements, abnormal speech, dizziness, numbness, seizure-like activity, syncope or weakness Psychiatric Psychiatric: Denies behavioral changes, change in appetite, confusion, depression, homicidal ideation, suicidal ideation or suicidal thoughts Endocrine Endocrinology: Denies excessive sweating, polydipsia or polyuria Hematologic/Lymphatic Hematologic/Lymphatic: Denies anemia Allergic/Immunologic Allergic/Immunologic: Denies itchy eyes, lip swelling, throat swelling, tongue swelling or wheezing Vital Signs Vital Signs Vital Signs: 06/01/25 11:04 06/01/25 11:04 06/01/25 11:04 Temperature Temperature Source Tympanic Pulse Rate Respiratory Rate 12 Blood Pressure BP Systolic BP Diastolic Pulse Ox 99 06/01/25 11:04 06/01/25 11:16 06/01/25 11:16 Temperature 97.9 F Temperature Source Pulse Rate 120 H Respiratory Rate Blood Pressure 139/85 H BP Systolic 139 BP Diastolic 85 Pulse Ox 06/01/25 11:22 06/01/25 11:22 06/01/25 11:27 Temperature Temperature Source Pulse Rate 119 H 121 H Respiratory Rate Blood Pressure BP Systolic BP Diastolic Pulse Ox 96 06/01/25 11:27 06/01/25 11:32 06/01/25 11:32 Temperature Temperature Source Pulse Rate 116 H Respiratory Rate Blood Pressure 133/71 H BP Systolic 133 BP Diastolic 71 Pulse Ox 97 06/01/25 11:47 06/01/25 11:47 06/01/25 12:02 Temperature Temperature Source Pulse Rate 123 H Respiratory Rate Blood Pressure 124/79 H 127/85 H BP Systolic 124 127 BP Diastolic 79 85 Pulse Ox 06/01/25 12:02 06/01/25 12:16 06/01/25 12:16 Temperature Temperature Source Pulse Rate 118 H 110 H Respiratory Rate Blood Pressure 126/71 H BP Systolic 126 BP Diastolic 71 Pulse Ox 06/01/25 15:20 06/01/25 15:20 Temperature Temperature Source Pulse Rate 86 Respiratory Rate Blood Pressure 123/64 H BP Systolic 123 BP Diastolic 64 Pulse Ox Weight Weight: 171 lb 8.314 oz Body Mass Index (BMI) 31.4 PRE- weight 142 lb PRE- Body Mass Index 26.1 (BMI) Physical Exam Const alert, oriented x3 and no apparent distress General Appearance: cooperative Orientation / Consciousness: awake HEENT normocephalic Neck full ROM Lymph Lymphatic: no lymphadenopathy noted Chest inspection of chest normal Resp normal respiratory effort and normal air movement Effort and Inspection: able to speak in complete sentences and symmetric chest movement GI soft to palpation and non-tender Inspection: gravid Palpation: soft; Negative for tender external exam normal Back/Spine normal to inspection Extremity normal to inspection and full ROM Skin no rashes or lesions noted Psych mental status grossly normal Appearance: grossly normal Speech: normal speech Labs Labs Labs: Blood Type O POSITIVE Antibody Screen NEGATIVE Hct, (37-47) 35.7 % L Hgb, (12.0-15.0) 12.6 g/dL Syphilis Total Ab, (Nonreactive) Nonreactive Rubella IgG Antibody, (Nonreactive) REAC Hep Bs Antigen, (Nonreactive) Nonreactive Hepatitis C Antibody, (Nonreactive) Nonreactive Chlamydia DNA (SERAFIN), (Negative) Negative N.gonorrhoeae DNA (SERAFIN), (Negative) Negative HIV 1&2 Antibody, (Nonreactive) Nonreactive Glucose 1 Hr 50 gm, (70-140) 118 mg/dL Assessment & Plan (1) Encounter for induction of labor: (2) GBS (group B streptococcus) UTI complicating : QUALIFIERS: Trimester: third trimester Qualified Code(s): O23.43 - Unspecified infection of urinary tract in , third trimester; B95.1 - Streptococcus, group B, as the cause of diseases classified elsewhere COMMENT: treat in labor (3) Polyhydramnios affecting : COMMENT: growth Q4wk with MFM, resolved at 32w scan most recent growth: 36w1d EFW 3278g 78%, AC >99% repeat glucola wnl (4) Choroid plexus cyst: COMMENT: resolved on 32w scan (5) Supervision of normal : QUALIFIERS: Normal : other normal Trimester: third trimester Qualified Code(s): Z34.83 - Encounter for supervision of other normal , third trimester COMMENT: PRR, , LAVELLE 05/30/25, girl- PC: Emmy & Ninoska, : Frank (6) : QUALIFIERS: Weeks of gestation: 40 weeks Qualified Code(s): Z3A.40 - 40 weeks gestation of COMMENT: Declines genetic/carrier testing, AFP Charges/Coding Multi Select Codes Urinary/Genital Urinary/Genital CPT Codes: No Charge
[2025-06-01] MEDS: Oxytocin 15 Units/NS 250ml 15 UNITS/250 ML IV.SOLN 2 UNITS IV (16:09)
[2025-06-01] MEDS: Lactated Ringers 1,000 ML 999 ML IV (16:10)
[2025-06-01] MEDS: fentaNYL-bupivacaine (epidural) 100 ML BAG EPIDURAL (17:18)
[2025-06-01] MEDS: Penicillin G 3,000,000 Units 50 ML 100 UNITS IV (19:35)
--- NOTE | 2025-06-01 19:38 | PN_ITS ---
Progress Note patient has epidural in place and consents to membrane rupture current tracing: FHT: Moderate variability reactive now with early decelerations since rupture. [place]: q 2-3 min Contractions A/P: LGA with estimated weight of 4200 grams (2 pounds bigger than her last baby) induced for deceleration on NST in office and elevated bp's without pre-e
[2025-06-01] MEDS: Oxytocin 15 Units/NS 250ml 15 UNITS/250 ML IV.SOLN 334 UNITS IV (20:15)
--- NOTE | 2025-06-01 20:34 | EX.PCM.OBVAG ---
Assessment & Plan (1) Encounter for induction of labor: (2) GBS (group B streptococcus) UTI complicating : QUALIFIERS: Trimester: third trimester Qualified Code(s): O23.43 - Unspecified infection of urinary tract in , third trimester; B95.1 - Streptococcus, group B, as the cause of diseases classified elsewhere COMMENT: treat in labor (3) Polyhydramnios affecting : COMMENT: growth Q4wk with MFM, resolved at 32w scan most recent growth: 36w1d EFW 3278g 78%, AC >99% repeat glucola wnl (4) Choroid plexus cyst: COMMENT: resolved on 32w scan (5) Supervision of normal : QUALIFIERS: Normal : other normal Trimester: third trimester Qualified Code(s): Z34.83 - Encounter for supervision of other normal , third trimester COMMENT: PRR, , LAVELLE 05/30/25, girl- PC: Emmy & Ninoska, : Frank (6) : QUALIFIERS: Weeks of gestation: 40 weeks Qualified Code(s): Z3A.40 - 40 weeks gestation of COMMENT: Declines genetic/carrier testing, AFP Maternal Data Information LAVELLE Calculator Estimated Delivery Date Method Current WG Current Estimate 05/30/25 LMP (Certain) 40w 2d Other Estimates 05/29/25 Ultrasound #1 40w 3d Final LAVELLE: 05/30/25 Final LAVELLE Source: LMP Gestational age: 40 weeks 2 days Vaginal Delivery Maternal Presentation Maternal Presentation: Medically Indicated Induction Maternal Presentation: patient was seen in the office and NST showed deceleration and elevated blood pressure. IOL was initiated Type of Induction: Pitocin and Amniotomy Medical Reason for Induction: Gestational Hypertension and Other Vaginal Delivery Information Procedure Performed: Spontaneous Vaginal Delivery Surgeon/Practitioner: Liz Ca Date of Procedure: 06/01/25 Pre-Procedure Diagnosis: @ 40 weeks 2 days, deceleration, elevated bp in office, suspect macrosomia from ultrasound, polyhydramnios Post-Procedure Diagnosis: @ 40 weeks 2 days, deceleration, elevated bp in office, suspect macrosomia from ultrasound, polyhydramnios Type of anesthesia: Epidural Estimated Blood Loss: 200cc Time of Delivery: 20:11 Findings Description of procedure: Patient began pushing and delivered the head in the DAR presentation. The head was delivered atraumatically. The anterior and posterior shoulders delivered without complication followed by the rest of the infant and the was placed on the maternal abdomen. Delayed cord clamping was employed for approximately 60 seconds. Cord was clamped and cut and gentle traction was applied to the cord and the placenta delivered spontaneously immediately following it was noted to be intact with three-vessel cord. The perineum and vagina were inspected and noted to have no laceration. EBL was 200cc. Patient and infant tolerated delivery well. Procedure findings: viable female infant (no name given at ) Presentation: Vertex Amniotic Membrane Rupture Type: Artificial Amniotic Fluid Description: Clear Placental Delivery Description: Spontaneous Placenta Disposition: [facility] Specimen collected: No Cord Vessel Description: 3 Vessels Cord Entanglement: None Infant A Gender: Female (1 minute): 8 (5 minute): 9 Delayed Cord Clamping: Yes Otolaryngology Surgeon sign writer letterer or painter: No Post Vaginal Deli Medications given after delivery: IV Pitocin Episiotomy Description: None Laceration: None Complication Complications: No Multi Select Codes Urinary/Genital Urinary/Genital CPT Codes: 80081 Vaginal Delivery [facility]
[2025-06-01] MEDS: Oxytocin 15 Units/NS 250ml 15 UNITS/250 ML IV.SOLN 83 UNITS IV (20:35)
--- NOTE | 2025-06-01 20:39 | DCINST_ITS ---
Discharge Instructions DC O2, CPAP, BIPAP needs Home O2 Discharge instructions: No Dressing / Incision Discharge Activity: Return to Normal Activity, May Not Drive (while taking narcotic pain medications.) and May Shower May resume sexual activity in: 4-6 weeks Dressing / Incision Call your doctor if your incision/area has: Continuous Slow Oozing, Sudden Increased Bleeding, Increased Pain/ Swelling, Increased Redness and Foul Smelling Discharge Follow Up Care Please Follow Up With: Liz Ca DO When: Call [phone] to make an appointment with your doctor in 6 weeks. If you had elevated blood pressure or 4th degree laceration, you will need to be seen in 2 weeks. Test Results: Test results from this visit will be discussed in further detail at your follow- up appointment, if applicable. Discharge Plan Admission Admit Date/Time: 06/01/25 14:00 Attending Provider: Liz Ca Primary Care Provider: Faiza Greenberg Discharge Orders/Prescriptions Prescriptions: No Action Classic 28 mg iron- 800 mcg tablet 1 tab PO DAILY ondansetron 4 mg tablet,disintegrating 4 mg PO Q6H PRN (Reason: nausea and vomiting) Qty: 30 4RF Referrals / Follow Up: Faiza Greenberg MD [Primary Care Provider, Medical]
[2025-06-02 02:42] VITALS: BP 107/75; PULSE 74; RESP 16; TEMP 36.6; O2SAT 96
--- NOTE | 2025-06-02 08:05 | PCM.PN.OB ---
Subjective Subjective Patient doing well without complaints. Tolerating PO. Ambulating and voiding without difficulty. Feeding well. Denies chest pain, shortness of breath, calf pain/swelling, fevers, chills, lightheadedness. Objective Data Objective Data Vital Signs: Vital Signs Temp Pulse Resp BP Pulse Ox O2 Del Method 97.9 F 74 16 107/75 96 Room Air 06/02/25 02:42 06/02/25 02:42 06/02/25 02:42 06/02/25 02:42 06/02/25 02:42 06/02/25 02:42 Oxygen Delivery Method Room Air Weight: 171 lb 8.314 oz Body Mass Index (BMI) 31.4 Intake & Output: Intake and Output for Last 24 Hours 05/31/25 06/01/25 06/02/25 23:59 23:59 23:59 Intake Total 2585.23 / 2585.23 Output Total 650 / 650 300 / 300 Balance 1935.23 / 1935.23 -300 / -300 Lab / Micro Data 06/01/25 11:15 06/01/25 11:15 Labs: Laboratory Results - last 24 hr 06/01/25 11:15: WBC 9.4, RBC 3.85 L, Hgb 12.6, Hct 35.7 L, MCV 92.7, MCH 32.7 H, MCHC 35.3, RDW Std Deviation 43.2, RDW Coeff of Ramsey 12.7, Plt Count 218, MPV 9.8, Creatinine 0.51 L, Estim Creat Clear Calc 151.81, Est GFR (MDRD) Non-Af 127, Uric Acid 3.4, AST 23, ALT 11, U Random Total Protein 24.6 H, Urine Creatinine 132.00, Protein/Creatinin Ratio 186 06/01/25 11:25: Vag Amniotic Fld Detect Negative 06/01/25 14:15: Syphilis Total Ab Nonreactive, Blood Type O POSITIVE, Antibody Screen NEGATIVE Physical Exam Const alert and oriented x3 HEENT normocephalic Eyes PERRL Neck full ROM Resp normal respiratory effort GI soft to palpation GI Narrative: FF below U Assessment & Plan (1) Vaginal delivery: COMMENT: baby girl- JV 06/01/25 PLAN: Plan s/p PPD #1 1. routine post delivery care 2. breast feeding- support given 3. rh positive 4. rubella immune
[2025-06-02 08:15] VITALS: BP 100/65; PULSE 63; RESP 16; TEMP 36.6; O2SAT 99
[2025-06-02 12:37] VITALS: BP 109/76; PULSE 68; RESP 16; TEMP 36.4; O2SAT 98
[2025-06-02] MEDS: Senna/Docusate Sodium 1 Tablet PO (16:30)
[2025-06-02 18:00] VITALS: BP 109/51; PULSE 77; RESP 16; TEMP 36.8; O2SAT 97
[2025-06-02 20:36] VITALS: BP 113/65; PULSE 81; RESP 17; TEMP 36.9; O2SAT 96
[2025-06-03 02:00] VITALS: BP 103/68; PULSE 71; RESP 16; TEMP 36.3; O2SAT 97
--- NOTE | 2025-06-03 07:03 | PCM.DC.SUM ---
Providers Date of Admission: 06/01/25 Primary Care Physician: Dr. Faiza Greenebrg MD Reason For Visit: VAG Diagnosis Discharge Diagnosis (1) Vaginal delivery: Status: Acute Code(s): O80 - Encounter for full-term uncomplicated delivery Medications at Discharge Home Medications vits no.126-ferrous fum 28 mg iron-folic acid 800 mcg tablet (Classic ) 1 tab PO DAILY 10/07/24 ondansetron 4 mg disintegrating tablet 4 mg PO Q6H PRN nausea and vomiting #30 tabs 10/23/24 Hospital Course Operations None Procedures - (vaginal delivery) Summary of Care Provided Minutes Spent on Discharge: 15 Hospital Course: The patient was admitted 06/01/25 for iol due to decelerations. She delivered the evening of 06/01/25 without complications. On day #1 she was ambulating and eating and requiring little assistance. On day #2 she requested dc to home. Physical Exam Const alert, oriented x3 and no apparent distress General Appearance: cooperative and comfortable Resp normal respiratory effort Cardio regular rate GI normal to inspection, nondistended, normoactive bowel sounds GI Narrative: uterus is firm below umbilicus Palpation: soft Back/Spine no CVA tenderness and thoraco-lumbar ROM normal Extremity normal to inspection, no clubbing, cyanosis or edema, no calf tenderness and no pedal edema Psych mental status grossly normal, thought process normal, cooperative, affect normal, speech normal, activity/motor behavior normal, denies homicidal ideation and denies suicidal ideation Weight / BMI Weight Weight: 171 lb 8.314 oz Body Mass Index (BMI) 31.4 PRE- weight 142 lb PRE- Body Mass Index 26.1 (BMI) ABG / Lab / Microbiology Data 06/01/25 11:15 06/01/25 11:15 D/C Instructions May resume sexual activity in: 4-6 weeks Call your doctor if your incision/area has: Continuous Slow Oozing, Sudden Increased Bleeding, Increased Pain/ Swelling, Increased Redness and Foul Smelling Discharge DC O2, CPAP, BIPAP Needs Home O2 Discharge instructions: No Please Follow Up With: Liz Ca DO When: Call [phone] to make an appointment with your doctor in 6 weeks. If you had elevated blood pressure or 4th degree laceration, you will need to be seen in 2 weeks. Meaningful Use Info Meaningful Use Meaningful Use Diagnoses (Choose all that apply): None applicable Discharge Plan Admission Admit Date/Time: 06/01/25 14:00 Primary Reason for Your Visit: vaginal delivery Attending Provider: Liz Ca Primary Care Provider: Faiza Greenberg Discharge Orders/Prescriptions Prescriptions: Continued Classic 28 mg iron- 800 mcg tablet 1 tab PO DAILY ondansetron 4 mg tablet,disintegrating 4 mg PO Q6H PRN (Reason: nausea and vomiting) Qty: 30 4RF Referrals / Follow Up: Faiza Greenberg MD [Primary Care Provider, Medical] Disposition Disposition (needs filled in before D/C Order can be placed): Home, Self Care
[2025-06-03 10:00] VITALS: BP 107/61; PULSE 74; RESP 16; TEMP 36.5; O2SAT 96
== END 2025-06-03 10:45 | disposition home or self-care (01) | DRG 787 ==
LOC: WPOUT 14:08 → WP 14:08
PROVIDERS: Advanced Practice Midwife; Admitting Provider Obstetrics & Gynecology; PCP Internal Medicine; Referring Provider Obstetrics & Gynecology; Visit Provider Obstetrics & Gynecology
DX: O76 Abnormality in fetal heart rate and rhythm complicating labor and delivery (principal); O98.82 Other maternal infectious and parasitic diseases complicating childbirth; B95.1 Streptococcus, group B, as the cause of diseases classified elsewhere; O13.4 Gestational [pregnancy-induced] hypertension without significant proteinuria, complicating childbirth; O40.3XX0 Polyhydramnios, third trimester, not applicable or unspecified; O36.63X0 Maternal care for excessive fetal growth, third trimester, not applicable or unspecified; Z3A.40 40 weeks gestation of pregnancy; Z37.0 Single live birth; Z87.891 Personal history of nicotine dependence
CPT/HCPCS: 59025; 59050; 82565; 82570; 84112; 84156; 84450; 84460; 84550; 85027; 86780; 86850; 86900; 86901; 99221; A4216; G0378